=== PATIENT | female | born 1960 | race Caucasian/White ===

== ENCOUNTER 2023-01-13 10:04 | Outpatient (CLI) | payer MEDICAID, SELFPAY | END 2023-01-13 10:05 | disposition home or self-care (01) | LOC: INJ CL 10:05 | PROVIDERS: PCP Student in an Organized Health Care Education/Training Program; Visit Provider Family Medicine | DX: M54.16 Radiculopathy, lumbar region (principal); M51.36 Other intervertebral disc degeneration, lumbar region | CPT/HCPCS: 62323; J0702; Q9966 ==

== ENCOUNTER 2023-02-05 19:04 | Outpatient (CLI) | payer MEDICAID, SELFPAY | END 2023-02-05 19:05 | disposition home or self-care (01) | LOC: AMB 02-12 13:09 | PROVIDERS: PCP Student in an Organized Health Care Education/Training Program; Visit Provider Emergency Medicine | DX: R06.09 Other forms of dyspnea (principal); U07.1 COVID-19 | CPT/HCPCS: A0425; A0427 ==

== ENCOUNTER 2023-02-05 19:35 | Emergency (ER) | payer MEDICAID, SELFPAY ==
[2023-02-05 19:44] VITALS: BP 131/87; PULSE 73; RESP 16; TEMP 37.7; O2SAT 95
--- NOTE | 2023-02-05 20:10 | CRLHL7_ITS ---
For Patients: As a result of the Century Cures Act, medical imaging exams and procedure reports are released immediately into your electronic medical record. You may view this report before your referring provider. If you have questions, please contact your health care provider. INDICATION: COVID-19 TECHNIQUE: Chest radiograph 1 view COMPARISON: None FINDINGS: The sensitivity and specificity of the exam are moderately limited by the patient`s body habitus. Mediastinum: The mediastinum is normal in appearance. The heart silhouette is normal in size and morphology. Lung: Both lungs are unremarkable in appearance. No sign of pleural effusion seen. No pneumothorax is identified. Bone and Soft tissue: Unremarkable for age. IMPRESSION: 1. No acute cardiopulmonary disease is seen. Dictated by: Jose Falcon MD @ 02/05/2023 21:06:37 (Electronically Signed)
[2023-02-05 20:34] VITALS: BP 139/76; PULSE 88; RESP 18; TEMP 37.2; O2SAT 96
--- NOTE | 2023-02-05 20:36 | ED_ITS ---
HPI - General Adult General Date Seen: 02/05/23 Chief complaint: Cough Stated complaint: COVID Time Seen by Provider: 02/05/23 19:57 Source: patient Mode of arrival: EMS Limitations: no limitations History of Present Illness HPI narrative: Patient is a 62-year-old who started feeling poorly last night with fatigue, body aches, cough, headache, congestion. Today tested positive for COVID. Called the triage line was told to come in because of a history of COPD. She does not take any inhalers regularly, no hospitalizations. Quit smoking in 2014. Otherwise takes some medications for mental health, no other significant medical history. Wondering about Paxlovid. Related Data Home Medications Medication Instructions Recorded Confirmed bupropion HCl 100 mg tablet 100 mg PO DAILY 08/25/22 08/25/22 fluoxetine 40 mg capsule (Prozac) 40 mg PO DAILY 08/25/22 08/25/22 lamotrigine 100 mg tablet 300 mg PO DAILY 08/25/22 08/25/22 (Lamictal) Previous Rx's Medication Instructions Recorded gabapentin 300 mg capsule 300 mg PO TID #45 caps 08/25/22 nirmatrelvir 300 mg (150 mg See Rx Instructions PO .COMPLEX 02/05/23 x2)-ritonavir 100 mg tablet,dose #30 ea pack (Paxlovid) Allergies Allergy/AdvReac Type Severity Reaction Status Date / Time penicillin G Allergy Verified 01/13/23 10:29 Review of Systems Status of ROS: Reports: 6 or more systems reviewed and unremarkable except as noted in History and below [facility] PFS Social History Smoking Status: Former smoker Do you use any of these nicotine containing products: None How often do you have a drink containing alcohol: 2-4 times a month AUDIT-C Alcohol total score: 2 Non-prescribed substance use: denies use Exam Narrative: Exam Narrative: Vital signs as noted above. In general, an alert, well-appearing patient. Head: Normocephalic, atraumatic. Eyes: Pupils are equal reactive. Extraocular movements are full. Conjunctivae are normal. ENT: Mucous membranes are moist. Neck: Supple without lymphadenopathy. Heart: Regular rate and rhythm. No murmur or rub. Lungs: No wheezing, occasional rales, no increased work of breathing. Abdomen: Soft and nontender. No organomegaly. Extremities: Well perfused. No edema. No calf tenderness. Pulses intact. Neurologic: Patient is alert and oriented to person and place. Speech is fluent. Face is symmetric. Moves all extremities equally. Affect: Normal. Skin: Warm and dry. Well perfused. Const: Vital Signs, click to edit/add: Vital Signs - 24 hr 02/05/23 19:44 02/05/23 20:34 Temperature 99.8 F H 98.9 F Pulse Rate [Right Pulse Oximeter] 73 88 Respiratory Rate 16 18 Blood Pressure [Ri ght Upper Arm] 131/87 139/76 Pulse Oximetry 95 96 Oxygen Delivery Me thod Room Air Room Air Documenting provider has reviewed patient's vital signs: yes Course Course ED Course: I did a portable chest x-ray, by my review this is negative. Final radiology read is pending. She looks well, O2 sats are normal. With her history of COPD I did prescribe an inhaler and prednisone although right now I do not hear any evidence of bronchospasm. Reviewed her medications, she should be okay to take Paxlovid, discussed that this is not designed to improve symptoms but more to prevent serious complications. Anticipate gradual improvement over the next 10- 14 days. For worsening respiratory symptoms or other acute worsening, return to the emergency department, follow-up with primary care if not gradually improving over the next couple weeks. Vital Signs Vital signs: Initial Vital Signs Temperature 99.8 F H 02/05/23 19:44 Temperature Source Temporal Artery Scan 02/05/23 19:44 Pulse Rate 73 02/05/23 19:44 Pulse Rhythm Regular 02/05/23 19:44 Respiratory Rate 16 02/05/23 19:44 Blood Pressure 131/87 02/05/23 19:44 Blood Pressure Mean 101 02/05/23 19:44 Blood Pressure Position Sitting 02/05/23 19:44 Pulse Oximetry 95 02/05/23 19:44 Oxygen Delivery Method Room Air 02/05/23 19:44 Vital Signs Temperature 99.8 F H 02/05/23 19:44 Pulse Rate 73 02/05/23 19:44 Respiratory Rate 16 02/05/23 19:44 Blood Pressure 131/87 02/05/23 19:44 Pulse Oximetry 95 02/05/23 19:44 Oxygen Delivery Method Room Air 02/05/23 19:44 Temperature 98.9 F 02/05/23 20:34 Pulse Rate 88 02/05/23 20:34 Respiratory Rate 18 02/05/23 20:34 Blood Pressure 139/76 02/05/23 20:34 Pulse Oximetry 96 02/05/23 20:34 Oxygen Delivery Method Room Air 02/05/23 20:34 Discharge Plan Discharge Clinical Impression: COVID-19 Patient Disposition: Home, Self-Care Condition: Stable Instructions: COVID-19 (Coronavirus Disease 2019) (ED) Additional Instructions: Paxlovid as prescribed. Monitor for worsening depression symptoms, or other side effects. Albuterol if needed for wheezing or shortness of breath, prednisone as prescribed. Primary care follow-up if not gradually improving over the next 10-14 days. Return at any time to the ER for significant worsening respiratory status or other concerns. Prescriptions: New Paxlovid 300 mg (150 mg x 2)-100 mg tablets,dose pack See Rx Instructions .ROUTE .COMPLEX Qty: 30 0RF Rx Instructions: take TWO 150 mg tablets of nirmatrelvir with ONE 100 mg tablet of ritonavir twice daily for 5 days No Action fluoxetine [Prozac] 40 mg capsule 40 mg PO DAILY lamotrigine [Lamictal] 100 mg tablet 300 mg PO DAILY bupropion HCl 100 mg tablet 100 mg PO DAILY gabapentin 300 mg capsule 300 mg PO TID Qty: 45 0RF Follow Up/Referrals: Amanda Vuong PA-C [Primary Care Provider] - Stand Alone Forms: [employer] Info Instructions
== END 2023-02-05 20:36 | disposition home or self-care (01) ==
PROVIDERS: Emergency Provider Emergency Medicine; PCP Student in an Organized Health Care Education/Training Program
DX: U07.1 COVID-19 (principal)
CPT/HCPCS: 71045; 99283; 99284

== ENCOUNTER 2023-04-28 08:25 | Outpatient (CLI) | payer MEDICAID, SELFPAY | END 2023-04-28 08:26 | disposition home or self-care (01) | LOC: INJ CL 08:26 | PROVIDERS: PCP Student in an Organized Health Care Education/Training Program; Visit Provider Family Medicine | DX: M48.062 Spinal stenosis, lumbar region with neurogenic claudication (principal); M54.16 Radiculopathy, lumbar region | CPT/HCPCS: 64483; J1100; Q9966 ==

== ENCOUNTER 2023-05-07 08:25 | Outpatient (CLI) | payer MEDICAID, SELFPAY ==
--- NOTE | 2023-05-07 08:15 | CRLHL7_ITS ---
For Patients: As a result of the Century Cures Act, medical imaging exams and procedure reports are released immediately into your electronic medical record. You may view this report before your referring provider. If you have questions, please contact your health care provider. INDICATION: Neck pain. Loss of balance. COMPARISON: None available. TECHNIQUE: Sagittal T1, T2, and STIR sequences. Axial T2/gradient sequences. FINDINGS: Straightening of the normal cervical lordosis which may be secondary to patient position or muscle spasm. Otherwise, normal vertebral body facet alignment. No fractures. No vertebral body loss of height. No spondylolisthesis. No ligamentous injury. Normal marrow signal. No suspicious osseous lesions. Normal cord signal. No intradural mass or lesion. C1-2: No spinal canal narrowing. C2-3: No narrowing of spinal canal. Uncovertebral joint hypertrophy results in mild narrowing of the left neural foramen. No narrowing of the right neural foramen. C3-4: Disc degeneration with posterior disc bulge or disc osteophyte complex. Effacement of ventral thecal sac and mild narrowing of spinal canal. No neural foraminal narrowing. C4-5: Disc generation posted disc bulge or disc osteophyte complex. Mild narrowing of spinal canal. Moderate narrowing of the right neural foramen. No narrowing of the left neural foramen. C5-6: Disc degeneration and broad-based disc osteophyte complex. Effacement of the ventral thecal sac and flattening of ventral aspect cord. Moderate narrowing of spinal canal. Moderate right and mild left neural foraminal narrowing. C6-7: Disc degeneration posterior disc bulge. Mild narrowing of spinal canal. No neural foraminal narrowing. C7-T1: Disc degeneration. No spinal canal or neural foraminal narrowing. IMPRESSION: 1. Straightening of the normal cervical lordosis 2. Otherwise normal alignment. No fractures. 3. Normal cord signal. 4. Cervical spondylosis. 5. At C2-3, mild narrowing of spinal canal 6. At C4-5, mild narrowing of spinal canal. Moderate narrowing of the right neural foramina 7. At C5-6, moderate narrowing of the spinal canal and right neural foramen. Dictated by Michel Harding MD @ 05/08/2023 10:24:14 AM (Electronically Signed)
== END 2023-05-07 08:26 | disposition home or self-care (01) ==
LOC: MRI 08:25
PROVIDERS: PCP Student in an Organized Health Care Education/Training Program; Visit Provider Orthopaedic Surgery Orthopaedic Surgery of the Spine
DX: M54.2 Cervicalgia (principal); M47.892 Other spondylosis, cervical region; M48.02 Spinal stenosis, cervical region; R26.9 Unspecified abnormalities of gait and mobility
CPT/HCPCS: 72141

== ENCOUNTER 2023-07-24 10:45 | Outpatient (RCR) | payer MEDICAID, SELFPAY | END 2023-11-21 23:59 | disposition home or self-care (01) | PROVIDERS: PCP Student in an Organized Health Care Education/Training Program; Visit Provider Orthopaedic Surgery Orthopaedic Surgery of the Spine | DX: M48.062 Spinal stenosis, lumbar region with neurogenic claudication (principal); M48.02 Spinal stenosis, cervical region; Z51.89 Encounter for other specified aftercare | CPT/HCPCS: 97110; 97162 ==

== ENCOUNTER 2023-07-28 08:04 | Outpatient (CLI) | payer MEDICAID, SELFPAY | END 2023-07-28 08:05 | disposition home or self-care (01) | LOC: INJ CL 08:04 | PROVIDERS: PCP Student in an Organized Health Care Education/Training Program; Visit Provider Family Medicine | DX: M54.16 Radiculopathy, lumbar region (principal); M51.36 Other intervertebral disc degeneration, lumbar region | CPT/HCPCS: 64483; 64494; J1100; Q9966 ==

== ENCOUNTER 2023-09-04 07:54 | Outpatient (CLI) | payer MEDICAID, SELFPAY ==
--- OUTSIDE RECORDS SUMMARY | 2023-09-04 07:56 | XMS_ITS | Clinical Summary ---
Author Name Unknown Organization [facility] Address [place], [place] [address] Care Team Providers Care Professor Of Political Science Name Role Phone Amanda Vuong Primary Care Provider [phone] Allergies Active Allergy Reactions Criticality Noted Date Comments Penicillins *Unknown - Childhood Rxn 08/10/2005 Medications Medication Sig Dispensed Refills Start Date End Date Status Cholecalciferol, Vitamin D3, 1,250 mcg (50,000 unit) wafr Take 1,250 mcg by mouth once weekly. Active tiZANidine (ZANAFLEX) 4 mg tabletIndications: Lumbar radiculopathy TAKE ONE TABLET BY MOUTH EVERY EIGHT HOURS NEEDED FOR MUSCLE SPASM 24 Tablet 08/21/2023 Active clonazePAM (KLONOPIN) 0.5 mg tabletIndications: Bipolar I disorder (HC) Take 1-2 Tablets (0.5-1 mg) by mouth at bedtime. 40 Tablet 1 08/24/2023 Active QUEtiapine (SEROQUEL) 50 mg tabletIndications: Bipolar I disorder (HC) Take 1 Tablet (50 mg) by mouth at bedtime. 30 Tablet 2 09/01/2023 Active buPROPion (Wellbutrin XL) 150 mg Extended-Release tabletIndications: Bipolar I disorder (HC) Take 1 Tablet (150 mg) by mouth once daily. 30 Tablet 2 09/01/2023 Active buPROPion (WELLBUTRIN XL) 300 mg Extended-Release tabletIndications: Bipolar I disorder (HC) Take 1 Tablet (300 mg) by mouth once daily. 30 Tablet 1 09/01/2023 Active FLUoxetine (PROZAC) 20 mg capsuleIndications :Bipolar I disorder (HC) Take 1 Capsule (20 mg) by mouth every morning. 30 Capsule 1 09/01/2023 Active lamoTRIgine (LAMICTAL) 100 mg tabletIndications: Bipolar I disorder (HC) Take 3 Tablets (300 mg) by mouth once daily. 90 Tablet 1 09/01/2023 Active clonazePAM (KLONOPIN) 0.5 mg tabletIndications: Bipolar I disorder (HC) Take 1-2 Tablets (0.5-1 mg) by mouth at bedtime. 40 Tablet 1 06/15/2023 08/21/19 24 Discontinued(Reo rder (E-cancel not sent)) buPROPion (Wellbutrin XL) 150 mg Extended-Release tabletIndications: Bipolar I disorder (HC) Take 1 Tablet (150 mg) by mouth once daily. 30 Tablet 2 07/14/2023 09/01/19 24 Discontinued(Reo rder (E-cancel not sent)) buPROPion (WELLBUTRIN XL) 300 mg Extended-Release tabletIndications: Bipolar I disorder (HC) Take 1 Tablet (300 mg) by mouth once daily. 30 Tablet 1 07/14/2023 09/01/19 24 Discontinued(Reo rder (E-cancel not sent)) FLUoxetine (PROZAC) 20 mg capsuleIndications :Bipolar I disorder (HC) Take 1 Capsule (20 mg) by mouth every morning. 30 Capsule 1 07/14/2023 09/01/19 24 Discontinued(Reo rder (E-cancel not sent)) lamoTRIgine (LAMICTAL) 100 mg tabletIndications: Bipolar I disorder (HC) Take 3 Tablets (300 mg) by mouth once daily. 90 Tablet 1 07/14/2023 09/01/19 24 Discontinued(Reo rder (E-cancel not sent)) ARIPiprazole (Abilify) 2 mg tabletIndications: Bipolar 1 disorder (HC) Take 1 Tablet (2 mg) by mouth once daily. 30 Tablet 2 07/14/2023 09/01/19 24 Discontinued(*Me d complete/Regimen complete/Level of care change) tiZANidine (ZANAFLEX) 4 mg tabletIndications: Lumbar radiculopathy TAKE ONE TABLET BY MOUTH EVERY EIGHT HOURS NEEDED FOR MUSCLE SPASM 24 Tablet 07/27/2023 08/21/19 24 Discontinued Active Problems Problem Noted Date Diagnosed Date Borderline personality disorder 07/14/2023 Bipolar 2 disorder 06/15/2023 Bipolar I disorder 06/15/2023 PTSD (post-traumatic stress disorder) 06/15/2023 Ear pain, left 05/30/2021 Gastroesophageal reflux disease 05/16/2021 Diastolic blood pressure 90 mm Hg or higher 04/19 Centrilobular emphysema 05/16/2021 Overview: 05/16/2021 Prothrombin gene mutation 11/05/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 Osteoarthritis 05/06/2018 Rheumatoid arthritis 05/06/2018 High risk medication use 05/06/2018 Numbness on left side 11/30/2012 Left leg weakness 11/30/2012 Weight loss 11/30/2012 Hypokalemia 11/30/2012 Bipolar disorder 05/20/2011 DDD (degenerative disc disease), lumbar 05/20/19 12 Tobacco use disorder 05/20/2011 Hyperlipidemia 05/20/2011 ACP (advance care planning) 05/20/2011 Overview: Patient has identified Health Care Agent(s): No Add Health Care Agents: No Patient has Advance Care Plan Documents (Health Care Directive, POLST): No, Health Care Packet given to patient. Patient has identified Specific Treatment Preferences: No Specific limits to treatment preferences NOT identified: ASSUME FULL TREATMENT. Symptomatic menopausal or female climacteric sta spencer 09/25/2010 Resolved Problems Problem Noted Date Diagnosed Date Resolved Date High risk medication use 02/23/2018 UTI (lower urinary tract infection) 02/23/2012 11/30/2012 Dyspnea on exertion 05/20/2011 12/01/19 13 Chest pain 05/19/2011 11/30/2012 Encounters Date Type Department Care Team Description 09/01/2023 11:15 AM CDT Office Visit [facility] [address] [address] [place] [address] Essence Song NP Telehealth; Medication Management 09/01/2023 Travel 08/26/2023 1:00 PM CDT Office Visit [facility] [address] [place] [address] Dwayne Barbour MD Musculoskeletal Problem (Follow up back pain, had an CHUCKIE on 07/28/23) 08/26/2023 Travel 08/21/2023 Refill [facility] [address] [place] [address] Essence Song NP Refill Request (clonazePAM (KLONOPIN) 0.5 mg tablet) 08/20/2023 Refill [facility] [address] [place] [address] Dwayne Barbour MD Refill Request (Tizanidine) 08/19/2023 Travel 07/31/2023 Telephone [facility] [address] [place] [address] Denise Weston RN PHP/DT 07/28/2023 8:40 AM CDT Office Visit [facility] [address] [place] [address] Dwayne Barbour MD Procedure (Right L5-S1 and left L4-5 TFESI) 07/25/2023 Refill [facility] [address] [place] [address] Dwayne Barbour MD Refill Request (Tizanidine) 07/25/2023 Travel 07/16/2023 Telephone [facility] [address] [place] [address] Laverne Mckeon LGSW Scheduling 07/15/2023 Telephone [facility] [address] [place] [address] Ivan Marie LADC 07/15/2023 Telephone [facility] [address] [place] [address] Denise Weston RN [facility] [place] 07/14/2023 11:15 AM TRANSPORTATION LEAD Office Visit [facility] [address] [facility] [address] [place] [address] Essence Song NP Telehealth; Medication Management 07/14/2023 Telephone [facility] [address] [place] [address] Denise Weston RN [facility] 07/14/2023 Travel 07/13/2023 Medical Messaging [facility] [address] [place] [id number] Dwayne Barbour MD Injection 06/17/2023 2:45 PM TRANSPORTATION LEAD Orders Only [facility] [address] [place] [id number] [facility] [place] Outside Order (Marian Parra) 06/17/2023 Travel 06/15/2023 10:45 AM TRANSPORTATION LEAD Office Visit [facility] [address] [facility] [address] [place] [id number] Essence Song NP Medication Management; Follow Up 06/15/2023 Travel 06/15/2023 Orders Only [facility] [address] [place] [address] Amanda Vuong PA Outside Order (Ordered by Marian Parra) 06/12/2023 Travel 06/08/2023 9:00 AM TRANSPORTATION LEAD Office Visit [facility] [address] [place] [address] Dwayne Barbour MD Musculoskeletal Problem (Spine injection follow up/Still having pain) 06/08/2023 Travel 06/05/2023 Refill [facility] [address] [place] [address] Amanda Vuong PA Refill Request (Fluoxetine) from Last 3 Months Immunizations Name Administration Dates Next Due COVID-19 Vaccine Spikevax (M oderna 50mcg/0.5mL) 12YO+ [id number] Formula PF 03/03/2023 COVID-19 vaccine (Secure-24 30mcg/0.3mL) P F, MDV 12/07/2020,11/09/2020 Influenza, IIV3 (Age >=3 years) 03/21/2012,03/18 Influenza, IIV4 03/03/2023,05/30/2021 Tdap 12/08/2017 Family History Medical History Relation Name Comments Psychiatric illness Brother Cancer Father bladder/melanom a Cancer-colon Father age late 60's Heart Disease Father quad bypass Arthritis Mother Cancer Mother lung Hyperlipidemia Mother Hypertension Mother Psychiatric illness Sister 1 Diabetes Sister 2 Alzheimer's disease Son 1 Blake Factor V Leiden deficiency Son 1 Blake Alcoholism Son 3 Fredy Cancer-breast No Family History Relation Name Status Comments Brother Father Alive Mother Sister 1 Sister 2 Son 1 Blake Alive Son 2 Sammy Alive Son 3 Fredy Alive Social History Tobacco Use Types Packs/Day Years Used Date Smoking Tobacco: Former Cigarettes 1 38.5 0 05/18/1974 - 11/29/2012 Smokeless Tobacco: Never Tobacco Cessation:Counseling Given: Yes Comments:quit september 2014 Alcohol Use Standard Drinks/Week Comments Yes 0 (1 standard drink = 0.6 oz pur e alcohol) 1-2 times a week PHQ-2 Answer Date Recorded PHQ-2 TOTAL SCORE 6 07/14/2023 Social Connections Answer Date Recorded Frequency of Communication with Friends and Fami ly 0 01/06/2023 Financial Resource Strain Answer Date R ecorded Difficulty of Paying Living Expenses 3 01/06/2023 Difficulty of Paying Living Expenses Not on file 01/06/2023 Food Insecurity Answer Date Recorded Worried About Running Out of Food in the Last Ye ar 1 01/06/2023 Transportation Needs Answer Date Record ed Lack of Transportation (Medical) 1 01/06/2023 Housing Stability Answer Date Recorded Unable to Pay for Housing in the Last Year 1 01/06/2023 Sex and Gender Information Value Date Recorded Sex Assigned at Not on file Gender Identity Not on file Sexual Orientation Not on file Obstetrics History Para Term AB IAB SAB Ectopic Multiple Livin g Live Births 3 3 3 0 0 0 0 0 3 Date Outcome GA Total Labor Labor/2nd/3rd Weight Sex Delivery Anes PTL Soraida A1 A5 Name Cl in Term Term Term Last Filed Vital Signs Vital Sign Reading Time Taken Comments Blood Pressure 135/87 09/01/2023 11:04 AM CDT Pulse 72 09/01/2023 11:04 AM CDT Temperature 36.6 ??C (97.9 ??F) 08/26/2023 1:06 PM CD T Respiratory Rate 20 07/14/2023 11:15 AM TRANSPORTATION LEAD Oxygen Saturation 96% 08/26/2023 1:06 PM CDT Inhaled Oxygen Concentration - - Weight 88.5 kg (195 lb) 03/03/2023 10:24 AM CDT Height 160 cm (5' 3) 07/14/2023 11:15 AM TRANSPORTATION LEAD Body Mass Index 34.54 09/16/2021 2:17 PM CDT Plan of Treatment Upcoming Encounters Date Type Department Care Team (Late st Contact Info) Description 09/04/2023 8:20 AM CDT Office Visit [facility] [address] [place] [address] Dwayne Barbour MD [address] [place] [address] 09/09/2023 12:45 PM CDT Office Visit [facility] [address] [place] [address] Amanda Vuong PA [address] [place] [address] 10/07/2023 10:15 AM CDT Office Visit [facility] [address] [place] [address] Ирина Roy MD [address] [place] [address] 12/02/2023 10:00 AM CDT Office Visit [facility] [address] [place] [address] Dwayne Barbour MD [address] [place] [address] Health Maintenance Due Date Last Done Comments Pneumococcal series for age 6-64 (1 of 2 - PCV) 12/15/1967 Mammogram for age 45-75 10/11/2011 10/11/19 11, 10/10/2010, 06/03/2007 Zoster (shingles) series for age 50+ (1 of 2) 12/15/[address] (for lung CA) ag e 50-80 05/16/2022 05/16/2021, 01/25/2019, 12/01/2012, Additional history exists BMI (ht and wt on same day) for age 18+ 09/16/2022 09/16/2021, 05/16/2021, 01/20/2018, Additional history exists Influenza for age 50-64 01/17/2024 03/03/20, 05/30/2021, 03/21/2012, Additional history exists Depression screening for age 12+ 07/15/2024 07/16/2023, 07/15/2023, 07/15/2023, Additional history exists Colonoscopy through age 75 02/26/2025 02/26/2015 Tetanus booster 12/09/2027 12/08/2017 Lipids for age 45-75 05/13/2028 05/13/2023, 02/14/2016, 11/30/2012, Additional history exists Tdap Completed 12/08/2017 HIV for age 15-65 Completed 07/05/2020 Hepatitis C screening for ag e 18-79 Completed 07/05/2020, 12/08/2017 COVID-19 vaccine series Completed 03/03/20, 07/19/2021, 12/07/2020, Additional history exists Procedures Procedure Name Priority Date/Time Associated Diagnosis Comments AMB EPIDURAL STEROID INJECTION Routine 07/28/2023 12:00 AM CDT Lumbosacral radiculopathy at L4 DDD (degenerative disc disease), lumbar Lumbar facet arthropathy METHYLMALONIC ACID BLOOD Routine 06/17/2023 2:53 PM TRANSPORTATION LEAD Paroxysmal nerve pain Fatigue Avitaminosis D VITAMIN B12 Routine 06/17/2023 2:53 PM TRANSPORTATION LEAD Paroxysmal nerve pain Fatigue Avitaminosis D VITAMIN D 25 (DEFICIENCY) Routine 06/17/2023 2:53 PM TRANSPORTATION LEAD Paroxysmal nerve pain Fatigue Avitaminosis D LIPID PANEL Routine 05/13/2023 12:22 PM TRANSPORTATION LEAD Medication monitoring encounter CT CHEST PE STUDY PAT 05/16/2021 12: 52 PM TRANSPORTATION LEAD Prothrombin gene mutation (HC) R[place] (dyspnea on exertion) ANTI HIV 1/2 Routine 07/05/2020 9:41 AM TRANSPORTATION LEAD Rheumatoid arthritis, involving unspecified site, unspecified whether rheumatoid factor present (HC) ANTI HCV Routine 07/05/2020 9:41 AM TRANSPORTATION LEAD Rheumatoid arthritis, involving unspecified site, unspecified whether rheumatoid factor present (HC) COLONOSCOPY 02/26/2015 2:21 PM CDT XR MAMMO SCREENING BILATERAL (IA) Routine 10/10/2010 9:44 AM CDT Other screening mammogram from Last 3 Months or Most Recently Relevant to Health Maintenance Results * AMB EPIDURAL STEROID INJECTION (07/28/2023 12:00 AM CDT) Dwayne Barbour MD NEUROLOGY ORD * METHYLMALONIC ACID BLOOD (06/17/2023 2:53 PM TRANSPORTATION LEAD) Methylmalonic Acid 144 0 - 378 nmol/L 06/26/2023 10:06 PM [facility] ([facility]) Blood BLOOD SPECIMEN / Unknown Venipuncture / Unknown 06/17/2023 2:53 PM TRANSPORTATION LEAD 06/17/2023 2:53 PM TRANSPORTATION LEAD Narrative [facility] ([facility]) - 06/26/2023 10:[address] [facility] Test(s) 097727-[id number] Acid, Serum was developed and its performance characteristics determined by [facility]. It has not been cleared or approved by the Food and Drug Administration. Performed at: ??[address] ??[id number] [employer] Executive Director: Ismael Musa MD, Phone: ??[phone] Amanda LEBLANC SEND OUTS [facility] ([facility]) [address] [place] [address], * (ABNORMAL) VITAMIN D 25 (DEFICIENCY) (06/17/2023 2:53 PM TRANSPORTATION LEAD) VITAMIN D TOTAL 13.4(L) 20.0 - 80.0 ng/mL 06/18/2023 10:00 AM TRANSPORTATION LEAD [facility] Blood BLOOD SPECIMEN / Unknown Venipuncture / Unknown 06/17/2023 2:53 PM TRANSPORTATION LEAD 06/17/2023 2:53 PM TRANSPORTATION LEAD Narrative [facility] - 06/18/2023 10:00 AM TRANSPORTATION LEAD ? Vitamin D Status Deficiency: ? <20 ng/mL Insufficiency: ?20-29 ng/mL Sufficiency: ?30-80 ng/mL Possible Toxicity: ??>80 ng/mL Based on [place] of Medicine recommendations Biotin supplements may cause clinically significant interference for this test assay. ??If interference is suspected, it is strongly recommended that biotin is discontinued for at least one week prior to retesting. Amanda LEBLANC SEND OUTS Performing Organization Address City/[facility]/ZIP Co de Phone Number [facility] [address] [place] [address], * VITAMIN B12 (06/17/2023 2:53 PM TRANSPORTATION LEAD) VITAMIN B12 634 232 - 1,245 pg/mL 06/18/2023 10:00 AM TRANSPORTATION LEAD [facility] Blood BLOOD SPECIMEN / Unknown Venipuncture / Unknown 06/17/2023 2:53 PM TRANSPORTATION LEAD 06/17/2023 2:53 PM TRANSPORTATION LEAD Narrative [facility] - 06/18/2023 10:00 AM TRANSPORTATION LEAD Biotin supplements may cause clinically significant interference for this test assay. ??If interference is suspected, it is strongly recommended that biotin is discontinued for at least one week prior to retesting. Amanda LEBLANC CHEMISTRY [facility] [address] [place] [address], * (ABNORMAL) LIPID PANEL (05/13/2023 12:22 PM TRANSPORTATION LEAD) [facility] CHOLESTEROL,TOTAL 235(H) 100 - 199 mg/dL 05/13/2023 12:[address] [facility] Comment: Cholesterol, Total Reference Ranges Desirable <200 mg/dL Borderline 200-239 mg/dL High >=240 mg/dL TRIGLYCERIDES 279(H) <150 mg/dL 05/13/2023 12:[address] [facility] HDL CHOLESTEROL 49 >40 mg/dL 12:[address] [facility] NON-HDL CHOLESTEROL 186(H) <145 mg/dl 05/13/2023 12:[address] [facility] CHOL/HDL RATIO 4.80(H) <4.50 05/13/2023 12:[address] [facility] LDL CHOLESTEROL 130 <=130 mg/dL 05/13/2023 12:[address] [facility] VLDL CHOLESTEROL 56(H) <=30 mg/dL 05/13/2023 12:[address] [facility] PROVIDER ORDERED STATUS RANDOM 05/13/2023 12:[address] [facility] Blood BLOOD SPECIMEN / Unknown Venipuncture / Unknown 05/13/2023 12:22 PM TRANSPORTATION LEAD 05/13/2023 12:23 PM TRANSPORTATION LEAD Essence Song NP CHEMISTRY [facility] [address] [place] [address] * CT CHEST PE STUDY (05/16/2021 12:52 PM TRANSPORTATION LEAD) Anatomical Region Laterality Modality CHEST, THORAX, HEART Other 05/16/2021 12:5 2 PM TRANSPORTATION LEAD Impressions 05/16/2021 1:10 PM TRANSPORTATION LEAD IMPRESSION: 1. ??Negative for pulmonary embolism. 2. ??Emphysema. Narrative 05/16/2021 1:10 PM TRANSPORTATION LEAD EXAM: CT CHEST PULMONARY EMBOLISM w CONTRAST LOCATION: [facility] DATE/TIME: 05/16/2021 12:52 PM INDICATION: Prothrombin gene mutation (HC), Dyspnea. COMPARISON: CT chest abdomen pelvis 01/25/2020 TECHNIQUE: CT chest pulmonary angiogram during arterial phase injection of IV contrast. Multiplanar reformats and MIP reconstructions were performed. Dose reduction techniques were used. CONTRAST: 80 cc Omn[employer] 350 FINDINGS: ANGIOGRAM CHEST: Pulmonary arteries are normal caliber and negative for pulmonary emboli. Thoracic aorta is negative for dissection. No CT evidence of right heart strain. LUNGS AND PLEURA: Moderate centrilobular predominant emphysema. No acute airspace opacities. Stable 3 mm right upper lobe nodule (series 5 image 125), most likely benign given multiyear stability. No pleural effusion or pneumothorax. MEDIASTINUM/AXILLAE: Normal heart size. No pericardial effusion. Normal caliber thoracic aorta. No thoracic lymphadenopathy. CORONARY ARTERY CALCIFICATION: Mild. UPPER ABDOMEN: Hepatic cysts. MUSCULOSKELETAL: No significant osseous abnormality. Procedure Note Fredy Sun MD - 05/16/2021 EXAM: CT CHEST PULMONARY EMBOLISM w CONTRAST LOCATION: [facility] DATE/TIME: 05/16/2021 12:52 PM INDICATION: Prothrombin gene mutation (HC), Dyspnea. COMPARISON: CT chest abdomen pelvis 01/25/2020 TECHNIQUE: CT chest pulmonary angiogram during arterial phase injection of IV contrast. Multiplanar reformats and MIP reconstructions were performed. Dose reduction techniques were used. CONTRAST: 80 cc Omnipaque 350 FINDINGS: ANGIOGRAM CHEST: Pulmonary arteries are normal caliber and negative for pulmonary emboli. Thoracic aorta is negative for dissection. No CT evidence of right heart strain. LUNGS AND PLEURA: Moderate centrilobular predominant emphysema. No acute airspace opacities. Stable 3 mm right upper lobe nodule (series 5 image 125), most likely benign given multiyear stability. No pleural effusion or pneumothorax. MEDIASTINUM/AXILLAE: Normal heart size. No pericardial effusion. Normal caliber thoracic aorta. No thoracic lymphadenopathy. CORONARY ARTERY CALCIFICATION: Mild. UPPER ABDOMEN: Hepatic cysts. MUSCULOSKELETAL: No significant osseous abnormality. IMPRESSION: IMPRESSION: 1. Negative for pulmonary embolism. 2. Emphysema. Bryon Neves DO CT * ANTI HCV (07/05/2020 9:41 AM TRANSPORTATION LEAD) Pathologist [facility] HEPATITIS C ANTIBODY Non-React lucas Non-React lucas 07/05/2020 3:17 PM TRANSPORTATION LEAD [facility] Comment:Antibodies to HCV no t detected; does not exclude the possibility of exposure to HCV. Blood BLOOD SPECIMEN / Unknown Venipuncture / Unknown 07/05/2020 9:41 AM TRANSPORTATION LEAD 07/05/2020 10:11 AM TRANSPORTATION LEAD Pam Hernandez MBBS SEND OUTS [facility] [address] [place] [address], [place] * ANTI HIV 1/2 (07/05/2020 9:41 AM TRANSPORTATION LEAD) Pathologist [facility] HIV-1/HIV-2 ANTIBODY Non-Reacti ve Non-Reacti ve 07/05/2020 3:26 PM TRANSPORTATION LEAD [facility] Comment:HIV-1 p24 and HIV-1/ HIV-2 Ab not detected. Blood BLOOD SPECIMEN / Unknown Venipuncture / Unknown 07/05/2020 9:41 AM TRANSPORTATION LEAD 07/05/2020 10:11 AM TRANSPORTATION LEAD Pam Hernandez MBBS SEND OUTS [facility] [address] [place] [address], [place] * COLONOSCOPY (02/26/2015 2:21 PM CDT) 02/26/2015 2:21 PM CDT Narrative 02/26/2015 2:21 PM CDT [facility] Patient Name: Paige Maynard ?Procedure Date: 02/26/2015 ? Gender: Female ? Date of : 1960 Admit Type: Ambulatory ? Procedure: ?Colonoscopy Proceduralist: ?Jose F Elaine MD Indications/Pre-Op Diagnosis: Screening for colorectal malignant neoplasm Medications: ?Fentanyl 150 micrograms IV, Midazolam 3 mg IV, ?The level of sedation administered was moderate ? Procedure Description: ? The patient had risks, benefits and alternatives explained to and gave ? informed consent. The patient had a stable cardiopulmonary status and ? judged an adequate candidate for conscious sedation. ? The pediatric colonoscope was passed through the anus and advanced to ? the cecum, identified by appendiceal orifice and ileocecal valve. The ? colonoscopy was performed without difficulty. The patient tolerated the ? procedure well. The quality of the bowel preparation was good. The ? ileocecal valve and the appendiceal orifice were photographed. ? Scope Withdrawal Time 0 hours 10 minutes 49 seconds Complications: ?No immediate complications. Estimated Blood Loss & Specimen: ? Estimated blood loss: none. ? Specimen collected: None ? Findings: ? The perianal and digital rectal examinations were normal. ? The colon (entire examined portion) appeared normal. ? Impressions/Post-Op Diagnosis: ? - The entire examined colon is normal. ? - No specimens collected. ? Recommendation: ? - Repeat colonoscopy in 10 years for surveillance. ? Jose F Elaine MD 02/26/2015 3:01:18 PM This report has been signed electronically. Note Initiated On: 02/26/2015 2:21 PM Procedure Note Jose F Elaine MD - 02/26/2015 3:01 PM CDT Procedural Care Center Patient Name: Paige Maynard Procedure Date: 02/26/2015 Gender: Female Date of : 1960 Admit Type: Ambulatory Procedure: Colonoscopy Proceduralist: Jose F Elaine MD Indications/Pre-Op Diagnosis: Screening for colorectal malignantneoplasm Medications: Fentanyl 150 micrograms IV, Midazolam 3 mgIV, The level of sedation administered wasmoderate Procedure Description: The patient had risks, benefits and alternatives explained to andgave informed consent. The patient had a stable cardiopulmonary status and judged an adequate candidate for conscious sedation. The pediatric colonoscope was passed through the anus and advanced to the cecum, identified by appendiceal orifice and ileocecal valve. The colonoscopy was performed without difficulty. The patient toleratedthe procedure well. The quality of the bowel preparation was good. The ileocecal valve and the appendiceal orifice were photographed. Scope Withdrawal Time 0 hours 10 minutes 49 seconds Complications: No immediate complications. Estimated Blood Loss & Specimen: Estimated blood loss: none. Specimen collected: None Findings: The perianal and digital rectal examinations were normal. The colon (entire examined portion) appeared normal. Impressions/Post-Op Diagnosis: - The entire examined colon is normal. - No specimens collected. Recommendation: - Repeat colonoscopy in 10 years for surveillance. Jose F Elaine MD 02/26/2015 3:01:18 PM This report has been signed electronically. Note Initiated On: 02/26/2015 2:21 PM Jose F Elaine MD PROCEDURE ORD * XR MAMMO SCREENING BILATERAL * (10/10/2010 9:44 AM CDT) Anatomical Region Laterality Modality BREASTS, Breast Left, Breast Right Bilateral Mammography Impressions 10/15/2010 5:21 PM CDT ??There is no radiographic evidence for malignancy. ??Recommend annual mammograms. A lay language report of this examination will be provided to the patient. MAMMOGRAM ASSESSMENT: ??ACR 1 Negative Narrative 10/15/2010 5:21 PM CDT XR MAMMO SCREENING BILATERAL [82525.0] CLINICAL HISTORY: ??This is an asymptomatic 49 y.o. patient. INDICATION FOR EXAM: Mammogram Screening. TECHNIQUE: CC & MLO views were obtained. ??This analog study was evaluated with the assistance of Computer-Aided Detection. ?? COMPARISON FILM: Yes 06/03/07 [facility] 02/21/04 [facility] FINDINGS: ??Mammographically, the breast tissue has scattered fibroglandular densities (approximately 25% - 50% glandular). ??There are no dominant masses, suspicious micro calcifications or areas of architectural distortion. Procedure Note Sarah Florence MD - 10/15/2010 XR MAMMO SCREENING BILATERAL [76532.0] CLINICAL HISTORY: This is an asymptomatic 49 y.o. patient. INDICATION FOR EXAM: Mammogram Screening. TECHNIQUE: CC & MLO views were obtained. This analog study was evaluatedwith the assistance of Computer-Aided Detection. COMPARISON FILM: Yes 06/03/07 [facility] 02/21/04 [facility] FINDINGS: Mammographically, the breast tissue has scatteredfibroglandular densities (approximately 25% - 50% glandular). There areno dominant masses, suspicious micro calcifications or areas ofarchitectural distortion. IMPRESSION: There is no radiographic evidence for malignancy. Recommendannual mammograms. A lay language report of this examination will be provided to the patient. MAMMOGRAM ASSESSMENT: ACR 1 Negative Maggi Cornejo MD MAMMO from Last 3 Months or Most Recently Relevant to Health Maintenance Advance Directives * Full Code (Latest Code Status on File) Date Activated Date Inactivated Comments 02/26/2015 8:07 AM 02/26/2015 6:28 PM * Full Code Date Activated Date Inactivated Comments 11/30/2012 2:33 AM 12/02/2012 5:28 PM * Full Code Date Activated Date Inactivated Comments 05/20/2011 12:29 AM 05/20/2011 4:58 PM Care Teams Professor Of Political Science Relationship Specialty Start Date End Date Amanda Vuong PA [address] [place] [address] PCP - General Physician Operation Agent 09/01/22
== END 2023-09-04 07:55 | disposition home or self-care (01) ==
LOC: INJ CL 07:54
PROVIDERS: PCP Student in an Organized Health Care Education/Training Program; Visit Provider Family Medicine
DX: M53.3 Sacrococcygeal disorders, not elsewhere classified (principal); M47.816 Spondylosis without myelopathy or radiculopathy, lumbar region
CPT/HCPCS: 27096; 64493; 64494; J0702; Q9966

== ENCOUNTER 2024-02-02 09:30 | Outpatient (CLI) | payer MEDICAID, SELFPAY ==
--- OUTSIDE RECORDS SUMMARY | 2024-02-02 09:32 | XMS_ITS | Clinical Summary ---
Author Organization [facility] Address [place], [place] [address] Care Team Providers Care Sole Blacker Name Role Phone Amanda Vuong Primary Care Provider [phone] Allergies Active Allergy Reactions Criticality Noted Date Comments Penicillins *Unknown - Childhood Rxn 08/10/2005 Medications Medication Sig Dispensed Refills Start Date End Date Status cholecalciferol, Vitamin D3, (Vitamin D-3) 5,000 unit tab tablet Take 5,000 units by mouth once daily. Active tiZANidine (ZANAFLEX) 4 mg tabletIndications:L umbar radiculopathy TAKE ONE TABLET BY MOUTH EVERY EIGHT HOURS NEEDED FOR MUSCLE SPASM 24 Tablet 2 11/16/2023 Active buPROPion (WELLBUTRIN XL) 300 mg Extended-Release tabletIndications:B ipolar I disorder (HC) Take 1 Tablet (300 mg) by mouth once daily. 90 Tablet 1 01/22/2024 Active divalproex (Depakote ER) 250 mg Extended-Release tabletIndications:B ipolar I disorder (HC) Take 1 Tablet (250 mg) by mouth at bedtime. 90 Tablet 1 01/22/2024 Active lamoTRIgine 100 mg tabletIndications:B ipolar I disorder (HC) Take 3 Tablets (300 mg) by mouth once daily. 90 Tablet 1 01/22/2024 Active clonazePAM (KLONOPIN) 0.5 mg tabletIndications:B ipolar I disorder (HC) Take 1-2 Tablets (0.5-1 mg) by mouth at bedtime. #45 tablets to last 30 days. 45 Tablet 2 01/22/2024 Active lamoTRIgine (LAMICTAL) 100 mg tabletIndications:B ipolar I disorder (HC) Take 3 Tablets (300 mg) by mouth once daily. 90 Tablet 1 09/01/2023 01/22/2024 Discontinued (Reorder (E-cancel not sent)) Pyridoxine HCl 500 mg tabletIndications:A kathisia Take 1 Tablet (500 mg) by mouth two times daily. 60 Tablet 2 11/11/2023 01/04/2024 Discontinued (*Med complete/Reg imen complete/Lev el of care change) buPROPion (WELLBUTRIN XL) 300 mg Extended-Release tabletIndications:B ipolar I disorder (HC) Take 1 Tablet (300 mg) by mouth once daily. 30 Tablet 2 11/11/2023 01/22/2024 Discontinued (Reorder (E-cancel not sent)) lurasidone (LATUDA) 20 mg tabletIndications:B ipolar I disorder (HC) Take 1 Tablet (20 mg) by mouth with dinner. 90 Tablet 11/17/2023 01/04/2024 Discontinued (*Allergic/A dverse Rxn/Side Effects) clonazePAM (KLONOPIN) 0.5 mg tabletIndications:B ipolar I disorder (HC) Take 1-2 Tablets (0.5-1 mg) by mouth at bedtime. 40 Tablet 1 2023 01/22/2024 Discontinued (*Medication adjustment) divalproex (Depakote ER) 250 mg Extended-Release tabletIndications:B ipolar I disorder (HC) Take 1 Tablet (250 mg) by mouth at bedtime. 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 Osteoarthritis 05/06/2018 Rheumatoid arthritis 05/06/2018 High risk medication use 05/06/2018 Numbness on left side 11/30/2012 Left leg weakness 11/30/2012 Weight loss 11/30/2012 Hypokalemia 11/30/2012 Bipolar disorder 05/20/2011 DDD (degenerative disc disease), lumbar 05/20/19 Tobacco use disorder 05/20/2011 Hyperlipidemia 05/20/2011 ACP (advance care planning) 05/20/2011 Overview (05/20/2011): Patient has identified Health Care Agent(s): No [...] Encounters Date Type Department Care Team Description 01/30/2024 Travel 01/22/2024 8:15 AM CDT Telemedicine [facility] [address] [facility] [address] Ирина Roy MD Telehealth; Medication Management (Things are going okay) 01/21/2024 Travel 01/07/2024 3:15 PM CDT Orders Only [facility] [address] [facility] [address] [place] Outside Order (Fidel) 01/07/2024 2:20 PM CDT Office Visit [facility] [address] [facility] [address] Dwayne Barbour MD Musculoskeletal Problem (Follow up back pain) 01/07/2024 Travel 01/04/2024 9:45 AM CDT Office Visit [facility] [address] [place] [address] Ирина Roy MD Follow Up; Medication Management (feeling, I'm feeling OK today) 01/03/2024 Travel 12/29/2023 Orders Only [facility] [address] [place] [address] Amanda Vuong PA Outside Order (Ordered by Marian Parra) 12/13/2023 Refill [facility] [place] [address] [facility] [address] [place] [address] Ирина Roy MD Refill Request (Clonazepam) 11/15/2023 Refill [facility] [address] [place] [address] Dwayne Barbour MD Refill Request (Tizanidine) 11/11/2023 9:45 AM CDT Office Visit [facility] [address] [place] [address] Ирина Roy MD Follow Up; Medication Management (feeling, nayely agitated, I have no reason to be agitated. I woke up that way) 11/11/2023 Travel from Last 3 Months Immunizations Name Administration Dates Next Due COVID-19 VACCINE SPIKEVAX (M ODERNA 50MCG/0.5ML) 12YO+ PFS 03/03/2023 COVID-19 vaccine (Pfizer-BioNTech 30mcg/0.3mL) P F, V 12/07/2020,11/09/2020 Influenza, IIV3 (Age >=3 years) 03/21/2012,03/18 [...] PHQ-2 Answer Date Recorded PHQ-2 TOTAL SCORE 4 01/21/2024 Social Connections Answer Date Recorded Frequency of Communication with Friends and Fami ly 4 10/22/2023 Financial Resource Strain Answer Date R ecorded [...] Outcome GA Total Labor Labor/2nd/3rd Weight Sex Type Anes PTL Soraida A1 A5 Name Clin Term Term Term Last Filed Vital Signs Vital Sign Reading Time Taken Comments Blood Pressure 123/91 01/07/2024 2:33 PM CDT Pulse 102 01/07/2024 2:33 PM CDT Temperature 37.1 ??C (98.7 ??F) 01/07/2024 2:33 PM CD T Respiratory Rate 16 10/23/2023 9:00 AM CDT Oxygen Saturation 95% 01/07/2024 2:33 PM CDT Inhaled Oxygen Concentration - - Weight 88.5 kg (195 lb) 03/03/2023 10:24 AM CDT Height 160 cm (5' 3) 07/14/2023 11:15 AM RESTAURANT SERVICE MANAGER Body Mass Index 34.54 09/16/2021 2:17 PM CDT Plan of Treatment Upcoming Encounters Date Type Department Care Team (Late st Contact Info) Description 02/02/2024 10:00 AM CDT Office Visit [facility] [address] [place] [address] Dwayne Barbour MD [address] [place] [address] Arrived 02/10/2024 11:10 AM CDT Office Visit [facility] [address] [place] [address] Amanda Vuong PA [address] [place] [address] 03/09/2024 10:40 AM CDT Office Visit [facility] [address] [place] [address] Dwayne Barbour MD [address] [place] [address] 03/15/2024 10:00 AM CDT Telemedicine [facility] [address] [place] [address] Shiv Han, PhD, [address] [address] 03/29/2024 11:00 AM RESTAURANT SERVICE MANAGER Telemedicine [facility] [address] [place] [address] Shiv Han, PhD, [address] [address] 04/20/2024 8:15 AM RESTAURANT SERVICE MANAGER Office Visit [facility] [address] [place] [address] Ирина Roy MD [address] [place] [address] Health Maintenance Due Date Last Done Comments [...] history exists Depression screening for age 12+ 01/21/2025 01/22/2024, 01/21/2024, 01/07/2024, Additional history exists Colonoscopy through age 75 02/26/2025 02/26/2015 Tetanus booster 12/09/2027 12/08/2017 Lipids for age 45-75 10/22/2028 10/23/2023, 05/13/2023, 02/14/2016, Additional history exists Tdap Completed 12/08/2017 HIV for age 15-65 Completed 07/05/2020 Hepatitis C screening for ag e 18-79 Completed 07/05/2020, 12/08/2017 COVID-19 vaccine series Completed 03/03/20, 07/19/2021, 12/07/2020, Additional history exists Procedures Procedure Name Priority Date/Time Associated Diagnosis Comments AMB EPIDURAL STEROID INJECTION Routine 02/02/2024 8:02 AM CDT Lumbar radiculopathy DDD (degenerative disc disease), cervical Lumbosacral radiculopathy at L4 VITAMIN D 25 (DEFICIENCY) Routine 01/07/2024 3:29 PM CDT Avitaminosis D LIPID PANEL Early AM 10/23/2023 8:[address] CHEST PE STUDY PAT 05/16/2021 12: 52 PM RESTAURANT SERVICE MANAGER Prothrombin gene mutation (HC) RICHARDSON (dyspnea on exertion) ANTI HIV 1/2 Routine 07/05/2020 9:41 AM RESTAURANT SERVICE MANAGER Rheumatoid arthritis, involving unspecified site, unspecified whether rheumatoid factor present (HC) ANTI HCV Routine 07/05/2020 9:41 AM RESTAURANT SERVICE MANAGER Rheumatoid arthritis, involving unspecified site, unspecified whether rheumatoid factor present (HC) COLONOSCOPY 02/26/2015 2:21 PM CDT XR MAMMO SCREENING BILATERAL (IA) Routine 10/10/2010 9:44 AM CDT Other screening mammogram from Last 3 Months or Most Recently Relevant to Health Maintenance Results * VITAMIN D 25 (DEFICIENCY) (01/07/2024 3:29 PM CDT) VITAMIN D TOTAL 66.5 20.0 - 80.0 ng/mL 01/08/2024 3:20 AM CDT [facility] Blood BLOOD SPECIMEN / Unknown Venipuncture / Unknown 01/07/2024 3:29 PM CDT 01/07/2024 3:34 PM CDT Narrative [facility] - 01/08/2024 3:20 AM CDT ? Vitamin D Status Deficiency: ? <20 ng/mL Insufficiency: ?20-29 ng/mL Sufficiency: ?30-80 ng/mL Possible Toxicity: ??>80 ng/mL Based on [employer] [facility] recommendations Biotin supplements may cause clinically significant interference for this test assay. ??If interference is suspected, it is strongly recommended that biotin is discontinued for at least one week prior to retesting. Amanda LEBLANC SEND OUT[facility] [address] [address], * (ABNORMAL) Lipid Panel (10/23/2023 8:35 AM CDT) CHOLESTEROL,TOTAL 226(H) 100 - 199 mg/dL 10/23/2023 10:03 AM CDT [facility] Comment: Cholesterol, Total Reference Ranges Desirable <200 mg/dL Borderline 200-239 mg/dL High >=240 mg/dL TRIGLYCERIDES 224(H) <150 mg/dL 10/23/2023 10:03 AM CDT [facility] HDL CHOLESTEROL 49 >40 mg/dL 10:03 AM CDT [facility] NON-HDL CHOLESTEROL 177(H) <145 mg/dl 10/23/2023 10:03 AM CDT [facility] CHOL/HDL RATIO 4.61(H) <4.50 10/23/2023 10:03 AM CDT [facility] LDL CHOLESTEROL 132(H) <=130 mg/dL 10/23/2023 10:03 AM T [facility] VLDL CHOLESTEROL 45(H) <=30 mg/dL 10/23/2023 10:03 AM CDT [facility] PROVIDER ORDERED STATUS RANDOM 10/23/2023 10:03 AM T [facility] Blood BLOOD SPECIMEN / Unknown Non-Lab Venipuncture / Unknown 10/23/2023 8:35 AM CDT 10/23/2023 9:14 AM CDT Shruti Sy NP CHEMISTRY [facility] [address] [address], [place] * CT CHEST PE STUDY (05/16/2021 12:52 PM RESTAURANT SERVICE MANAGER) Anatomical Region Laterality Modality CHEST, THORAX, HEART Other 05/16/2021 12:5 2 PM RESTAURANT SERVICE MANAGER Impressions 05/16/2021 1:10 PM RESTAURANT SERVICE MANAGER IMPRESSION: 1. ??Negative for pulmonary embolism. 2. ??Emphysema. Narrative 05/16/2021 1:10 PM RESTAURANT SERVICE MANAGER EXAM: CT CHEST PULMONARY EMBOLISM w CONTRAST LOCATION: [facility] DATE/TIME: 05/16/2021 12:52 PM INDICATION: Prothrombin gene [...] CT CHEST PULMONARY EMBOLISM w CONTRAST LOCATION: [facility] DATE/TIME: 05/16/2021 12:52 PM INDICATION: Prothrombin gene [...] 1. Negative for pulmonary embolism. 2. Emphysema. Ximenaverona Herrera V, DO CT * ANTI HCV (07/05/2020 9:41 AM RESTAURANT SERVICE MANAGER) HEPATITIS C ANTIBODY Non-React lucas Non-React lucas 07/05/2020 3:17 PM RESTAURANT SERVICE MANAGER [facility] Comment:Antibodies to HCV no t detected; does not exclude the possibility of exposure to HCV. Blood BLOOD SPECIMEN / Unknown Venipuncture / Unknown 07/05/2020 9:41 AM RESTAURANT SERVICE MANAGER 07/05/2020 10:11 AM RESTAURANT SERVICE MANAGER Pam FARRARBS [facility] [address] [place] [address], [place] * ANTI HIV 1/2 (07/05/2020 9:41 AM RESTAURANT SERVICE MANAGER) Pathologist [facility] HIV-1/HIV-2 ANTIBODY Non-Reacti ve Non-Reacti ve 07/05/2020 3:26 PM RESTAURANT SERVICE MANAGER [facility] Comment:HIV-1 p24 and HIV-1/ HIV-2 Ab not detected. Blood BLOOD SPECIMEN / Unknown Venipuncture / Unknown 07/05/2020 9:41 AM RESTAURANT SERVICE MANAGER 07/05/2020 10:11 AM RESTAURANT SERVICE MANAGER Pam Hernandez MBBS [facility] [address] [place] [address], [place] * COLONOSCOPY (02/26/2015 2:21 PM CDT) 02/26/2015 2:21 PM CDT Narrative 02/26/2015 2:21 PM CDT [facility] Patient Name: Paige Maynard ?Procedure Date: [...] Elaine MD - 02/26/2015 3:01 PM CDT [facility] Patient Name: Paige Maynard Procedure [...] 5:21 PM CDT XR MAMMO SCREENING BILATERAL [71436.0] CLINICAL HISTORY: ??This is an asymptomatic 49 y.o. patient. INDICATION FOR EXAM: Mammogram Screening. TECHNIQUE: CC & MLO views were obtained. ??This analog study was evaluated with the assistance of Computer-Aided Detection. ?? COMPARISON FILM: Yes 06/03/07 [facility] 02/21/04 [facility] FINDINGS: ??Mammographically, the breast tissue has scattered fibroglandular densities (approximately 25% - 50% glandular). ??There are no dominant masses, suspicious micro calcifications or areas of architectural distortion. Procedure Note Sarah Florence MD - 10/15/2010 XR MAMMO SCREENING BILATERAL [[id number]] CLINICAL HISTORY: This is an asymptomatic 49 y.o. patient. INDICATION FOR EXAM: Mammogram Screening. TECHNIQUE: CC & MLO views were obtained. This analog study was evaluatedwith the assistance of Computer-Aided Detection. COMPARISON FILM: Yes 06/03/07 [facility] 02/21/04 [facility] FINDINGS: Mammographically, the breast tissue [...] on File) Date Activated Date Inactivated Comments 10/22/2023 6:27 AM 10/23/2023 1:40 PM Question Answer Comments Code Status Discussion: Not Discussed * Full Code Date Activated Date Inactivated Comments 02/26/2015 8:07 AM 02/26/2015 6:28 PM * Full Code Date Activated Date Inactivated Comments 11/30/2012 2:33 AM 12/02/2012 5:28 PM * Full Code Date Activated Date Inactivated Comments 05/20/2011 12:29 AM 05/20/2011 4:58 PM Care Teams Sole Blacker Relationship Specialty Start Date End Date Amanda Vuong PA [address] [place] [address] PCP - General Physician Sales Representative Uniforms 09/01/22
== END 2024-02-02 09:31 | disposition home or self-care (01) ==
LOC: INJ CL 09:31
PROVIDERS: PCP Student in an Organized Health Care Education/Training Program; Visit Provider Family Medicine
DX: M54.16 Radiculopathy, lumbar region (principal); M51.36 Other intervertebral disc degeneration, lumbar region
CPT/HCPCS: 64483; J1100; Q9966

== ENCOUNTER 2024-03-25 13:00 | Outpatient (RCR) | payer MEDICAID, SELFPAY | END 2024-07-23 23:59 | disposition home or self-care (01) | PROVIDERS: PCP Student in an Organized Health Care Education/Training Program; Visit Provider Student in an Organized Health Care Education/Training Program | DX: M75.51 Bursitis of right shoulder (principal); M75.41 Impingement syndrome of right shoulder; M25.511 Pain in right shoulder; Z74.09 Other reduced mobility; R53.1 Weakness; R29.3 Abnormal posture; Z51.89 Encounter for other specified aftercare | CPT/HCPCS: 97110; 97140; 97162 ==

== ENCOUNTER 2024-03-28 11:13 | Emergency (ER) | payer MEDICAID, SELFPAY ==
[2024-03-28 11:21] VITALS: BP 134/89; PULSE 64; RESP 18; TEMP 36.5; O2SAT 95; BMI 28.3
--- NOTE | 2024-03-28 12:59 | ED_ITS ---
HPI - Extremity Injury (Upper) General Time Seen by Provider: 12:59 Date Seen: 03/28/24 Chief Complaint: Extremity Pain/Injury, Upper Stated Complaint: shoulder pain Time Seen by Provider: 03/28/24 12:59 Source: patient, family and RN notes reviewed Mode of arrival: ambulatory Limitations: no limitations History of Present Illness HPI narrative: Paige is a very pleasant 63-year-old female previously healthy who comes to the emergency room for evaluation of right shoulder pain as her primary provider is on vacation this week. Paige notes the onset of some discomfort while unhooking her bra probably in December. It became more and more difficult to move her shoulder and she saw Dr. Barbour of the [facility] on February 16. At that time she underwent x-ray and an MRI and fortunately this did show impingement and rotator cuff tear. Paige noted on 03/10 she was attempting to get out of bed and slipped and had a event where she tried to push off the bed with her sore arm. She jammed her shoulder and the pain has been much worse since then. She was seen on 03/17 at which time she had a cortisone shot but it did not help and an MRI was reviewed. The plan was that she would see surgery if the cortisone did not help. Unfortunately patient has been experiencing more and more pain. She was given oxycodone but it has not helped. Today she notes that she has flexion of her right 4th finger. She is able to straighten her finger but this is something new today. She also notes tightness in her biceps. Her maximal pain is around the humeral head. Patient is not experience any chest pain or fever. At home she has been on naproxen twice a day Tylenol every 4 hours as well as tinazidine. Unfortunately along with oxycodone this has not helped her pain. Paige noted that the triage nurse sent her here to the emergency room because her primary is not available for the next week and thought that we could see her today. They are sending her MRI over for our viewing. Related Data Home Medications ?Medication ?Instructions ?Recorded ?Confirmed bupropion HCl 100 mg tablet 100 mg PO DAILY 08/25/22 08/25/22 fluoxetine 40 mg capsule (Prozac) 40 mg PO DAILY 08/25/22 08/25/22 lamotrigine 100 mg tablet 300 mg PO DAILY 08/25/22 08/25/22 (Lamictal) Previous Rx's ?Medication ?Instructions ?Recorded gabapentin 300 mg capsule 300 mg PO TID #45 caps 08/25/22 nirmatrelvir 300 mg (150 mg See Rx Instructions PO .COMPLEX 02/05/23 x2)-ritonavir 100 mg tablet,dose #30 ea pack (Paxlovid) hydrocodone 5 mg-acetaminophen 325 1 - 2 tab PO Q4-6H PRN pain #10 03/28/24 mg tablet tabs prednisone 20 mg tablet 20 mg PO BID #8 tabs 03/28/24 Allergies Allergy/AdvReac Type Severity Reaction Status Date / Time penicillin G Allergy Verified 03/28/24 11:21 Review of Systems Status of ROS: Reports: 6 or more systems reviewed and unremarkable except as noted in History and below Const: Denies: fever Cardio: Denies: chest pain, swelling of feet/ankles, lightheadedness or shortness of breath with exertion Resp: Denies: shortness of breath or cough GI: Denies: nausea or vomiting PFSH PFSH Social History Smoking Status: Former smoker Do you use any of these nicotine containing products: None How often do you have a drink containing alcohol: 2-4 times a month AUDIT-C Alcohol total score: 2 Non-prescribed substance use: denies use Exam Narrative: Exam Narrative: Paige is a very pleasant 63-year-old female who is quite tearful and in discomfort. Her EOM is full in her head is atraumatic normocephalic. Her shoulder is with normal anatomy but she has tenderness throughout. There is no erythema or ecchymosis. She is holding her arm in flexion. She does have flexion of her right 4th finger but she is able to straighten it out. However at rest it does flex again. There is normal strength and motor in the hand. Of note I do hold if all fingers in extension and with distraction there is no flexion of the 4th finger at this time. When this is persistent and not tr ansient. The shoulder joint is not warm to the touch. Heart with regular rate and rhythm and lungs are clear bilaterally. Any movement of the shoulder passive or active greatly increases patient's pain Const: Vital Signs, click to edit/add: Vital Signs - 24 hr 11/11/24 11:21 Temperature 97.7 F Pulse Rate [Pulse Oximeter] 64 Respiratory Rate 18 Blood Pressure [Ri ght Upper Arm] 134/89 Pulse Oximetry 95 Oxygen Delivery Me thod Room Air Documenting provider has reviewed patient's vital signs: yes Course Course ED Course: At this time differential diagnosis includes but is not limited to septic joint, adhesive capsulitis, rotator cuff tendinitis, gout. There is no evidence of infection and the wound is not warm. Patient has significant pain and therefore I have suggested that we place an IV, give dexamethasone 10 mg, Toradol 15 mg, morphine 4 mg and Zofran 4 mg. When she is feeling better will also obtain x- rays of the right shoulder. Reevaluation(s) Reevaluation #1: Patient appears to be improved after pain medications. O2 sats did drop to 88- 89 and 90% after morphine. However with deep breathing O2 sats return to the mid 90s. Vital Signs Vital signs: Initial Vital Signs Temperature 97.7 F 03/28/24 11:21 Temperature Source Temporal Artery Scan 03/28/24 11:21 Pulse Rate 64 03/28/24 11:21 Pulse Rhythm Regular 03/28/24 11:21 Respiratory Rate 18 03/28/24 11:21 Blood Pressure 134/89 03/28/24 11:21 Blood Pressure Mean 104 03/28/24 11:21 Blood Pressure Position Sitting 03/28/24 11:21 Pulse Oximetry 95 03/28/24 11:21 Oxygen Delivery Method Room Air 03/28/24 11:21 Vital Signs Temperature 97.7 F 03/28/24 11:21 Pulse Rate 64 03/28/24 11:21 Respiratory Rate 18 03/28/24 11:21 Blood Pressure 134/89 03/28/24 11:21 Pulse Oximetry 95 03/28/24 11:21 Oxygen Delivery Method Room Air 03/28/24 11:21 Temperature 97.7 F 03/28/24 11:21 Pulse Rate 64 03/28/24 11:21 Respiratory Rate 18 03/28/24 11:21 Blood Pressure 134/89 03/28/24 11:21 Pulse Oximetry 95 03/28/24 11:21 Oxygen Delivery Method Room Air 03/28/24 11:21 Medications Administered Medications: Discontinued Medications Generic Name Dose Route Start Last Admin Trade Name Freq PRN Reason Stop Dose Admin Dexamethasone 10 mg 03/28/24 13:15 03/28/24 13:27 Dexamethasone 10 Mg/Ml Inj IVP 03/28/24 13:16 10 mg ONCE ONE Administration Ketorolac Tromethamine 15 mg 03/28/24 13:15 03/28/24 13:27 Ketorolac 15 Mg/Ml Inj IVP 03/28/24 13:16 15 mg ONCE ONE Administration Morphine Sulfate 4 mg 03/28/24 13:15 03/28/24 13:27 Morphine 4 Mg/Ml Inj IVP 03/28/24 13:16 4 mg ONCE ONE Administration Ondansetron HCl 4 mg 03/28/24 13:15 03/28/24 13:27 Ondansetron 2 Mg/Ml Inj IVP 03/28/24 13:16 4 mg ONCE ONE Administration MDM - Extremity Injury (Upper) MDM Narrative Medical decision making narrative: 1. Right shoulder pain-suspected he said of capsulitis given the amount of pain and limited motion. At this time will place patient in shoulder immobilizer but strongly encouraged [id number] exercises a few times daily. Follow-up with orthopedics for evaluation. For discomfort patient did receive dexamethasone 10 mg as an anti-inflammatory. Would have her continue prednisone 20 mg b.i.d. for an additional 4 days 1st dose tomorrow evening. Patient does not think the oxycodone works for her but would like to try hydrocodone. This is acceptable but she will need to avoid clonazepam and the muscle relaxer which she has been prescribed as this could place her at health risk. She does agree to this. Hydrocodone 09/17 25 1-2 tablets p.o. Q 4-6 hours p.r.n. 10. Tablets with no refills. We spoke about the use of ibuprofen but with steroids already on board she should not need to use ibuprofen as anti-inflammatory. 2. Disposition-home at this time. Follow-up with Dr. Barbour or Orthopedics. The number has been provided for her. Of course return to the emergency room for worsening symptoms and as needed. Addendum: X-ray did not show any acute findings. No indication for repeat MRI in the emergency room. Medical Records Attestation: I reviewed the patient's medical records. Imaging Data Right shoulder x-ray: Attestation: I have reviewed the pertinent imaging results. My impression: I do not note any acute findings Radiologist's impression: No evident acute displaced fracture. Tiny subacromial enthesophyte. Mild degenerative change of the acromioclavicular joint. Minimal degenerative change of the glenohumeral joint. The subacromial space is grossly preserved. IMPRESSION: 1. No evident acute displaced fracture. 2. Mild degenerative change of the acromioclavicular joint. Minimal degenerative change of the glenohumeral joint. 3. Tiny subacromial enthesophyte. Discharge Plan Discharge Clinical Impression: Acute pain of right shoulder Additional Instructions: 1. You received dexamethasone which is a steroid through the IV today. This is an anti-inflammatory medication. We will have you continue steroids for 4 more days starting tomorrow evening. This was sent to your pharmacy. 2. Will have you hold off on your oxycodone at this time. Instead will try Vicodin which is a combination of a narcotic called hydrocodone and Tylenol. Please do not take any additional Tylenol as Tylenol as already contained in this medication. Please do not take Vicodin with oxycodone. They are both narcotics. Do not drive or use alcohol if using these medications. 3. Shoulder mobilizer this can be used for immobilizing shoulder for pain control. However, at least 3 to 4 times a day I do want you to take her shoulder out, bend at the waist and let your arm hang freely in front of you. Then make small circles to try to regain some mobility. Follow-up with orthopedics as soon as possible. The phone number is [phone]. 4. We spoke about avoiding the use of clonazepam or any other medication such as the muscle relaxer which could cause sedation. In combination with the narcotic this could create respiratory depression and serious health risks. Prescriptions: New prednisone 20 mg tablet 20 mg PO BID Qty: 8 0RF hydrocodone-acetaminophen 5-325 mg tablet 1 - 2 tab PO Q4-6H PRN (Reason: pain) Qty: 10 0RF No Action Paxlovid 300 mg (150 mg x 2)-100 mg tablets,dose pack See Rx Instructions .ROUTE .COMPLEX Qty: 30 0RF Rx Instructions: take TWO 150 mg tablets of nirmatrelvir with ONE 100 mg tablet of ritonavir twice daily for 5 days fluoxetine [Prozac] 40 mg capsule 40 mg PO DAILY lamotrigine [Lamictal] 100 mg tablet 300 mg PO DAILY bupropion HCl 100 mg tablet 100 mg PO DAILY gabapentin 300 mg capsule 300 mg PO TID Qty: 45 0RF Follow Up/Referrals: Amanda Vuong PA-C [Primary Care Provider] - Stand Alone Forms: [employer] Info Instructions
[2024-03-28] MEDS: MORPHINE 4 MG/ML INJ IVP (13:27)
[2024-03-28] MEDS: dexAMETHasone 10 MG/ML inj IVP (13:27)
[2024-03-28] MEDS: ONDANSETRON 2 MG/ML inj 4 MG IVP (13:27)
[2024-03-28] MEDS: KETOROLAC 15 MG/ML inj IVP (13:27)
--- OUTSIDE RECORDS SUMMARY | 2024-03-28 13:28 | XMS_ITS | Clinical Summary ---
Author Organization [facility] Address [place], [place] [address] Care Team Providers Care Clerical Clerk Name Role Phone Amanda Vuong Primary Care Provider [phone] Allergies Active Allergy Reactions Criticality Noted Date Comments Penicillins *Unknown - Childhood Rxn 08/10/2005 Medications Medication Sig Dispensed Refills Start Date End Date Status buPROPion (WELLBUTRIN XL) 300 mg Extended-Release tabletIndications: Bipolar I disorder (HC) Take 1 Tablet (300 mg) by mouth once daily. 90 Tablet 1 01/22/2024 Active clonazePAM (KLONOPIN) 0.5 mg tabletIndications: Bipolar I disorder (HC) Take 1-2 Tablets (0.5-1 mg) by mouth at bedtime. #45 tablets to last 30 days. 45 Tablet 2 01/22/2024 Active lamoTRIgine 100 mg tabletIndications: Bipolar I disorder (HC) Take 3 Tablets (300 mg) by mouth once daily. 90 Tablet 2 02/12/2024 Active divalproex (Depakote ER) 250 mg Extended-Release tabletIndications: Bipolar I disorder (HC) Take 2 Tablets (500 mg) by mouth once daily. 60 Tablet 2 02/12/2024 Active oxyCODONE (ROXICODONE) 5 mg immediate release tabletIndications: Shoulder impingement syndrome, right,Bursitis of right shoulder Take 1 Tablet (5 mg) by mouth 3 times daily if needed for Pain. 36 Tablet 03/17/2024 Active tiZANidine (ZANAFLEX) 4 mg tabletIndications: Lumbar radiculopathy TAKE ONE TABLET BY MOUTH EVERY EIGHT HOURS NEEDED FOR MUSCLE SPASM 60 Tablet 1 03/22/2024 Active tiZANidine (ZANAFLEX) 4 mg tabletIndications: Lumbar radiculopathy TAKE ONE TABLET BY MOUTH EVERY EIGHT HOURS NEEDED FOR MUSCLE SPASM 24 Tablet 2 11/16/2023 4 Discontinued traMADoL (ULTRAM) 50 mg tabletIndications: Bursitis of right shoulder,Shoulder impingement syndrome, right Take 1 Tablet (50 mg) by mouth at bedtime. 14 Tablet 02/24/2024 4 Discontinued(*Me d complete/Regimen complete/Level of care change) oxyCODONE (ROXICODONE) 5 mg immediate release tabletIndications: Shoulder impingement syndrome, right,Bursitis of right shoulder Take 1 Tablet (5 mg) by mouth at bedtime if needed for Pain. 10 Tablet 02/29/2024 4 Discontinued(Reo rder (E-cancel not sent)) oxyCODONE (ROXICODONE) 5 mg immediate release tabletIndications: Shoulder impingement syndrome, right,Bursitis of right shoulder Take 1 Tablet (5 mg) by mouth at bedtime if needed for Pain. 12 Tablet 03/10/2024 4 Discontinued(Reo rder (E-cancel not sent)) Hospital, Clinic, or Other Facility Administered Medication Ordered Dose Route Frequency Start Date End Date Status betamethasone acet,sod phos 9 mg injection (CELESTONE SOLUSPAN)Indications:Shoul le impingement syndrome, right,Bursitis of right shoulder 9 mg IArtic ONE TIME 03/17/2024 03/17/2024 Ended Active Problems Problem Noted Date Diagnosed Date Borderline personality disorder 07/14/2023 Bipolar 2 disorder 06/15/2023 Bipolar I disorder 06/15/2023 PTSD (post-traumatic stress disorder) 06/15/2023 Ear pain, left 05/30/2021 Gastroesophageal reflux disease 05/16/2021 Diastolic blood pressure 90 mm Hg or higher 04/19 Centrilobular emphysema 05/16/2021 Overview (05/16/2021): 05/16/2021 Prothrombin gene mutation 11/05/2020 Overview (04/25/2021): Heterozygous; diagnosed 12/05/2019; had seen [facility] Elective surgery and hospitalization needs DVT [...] Encounters Date Type Department Care Team Description 03/21/2024 Refill [facility] [address] [place] [address] Dwayne Barbour MD Refill Request (Tizanidine) 03/18/2024 Nurse Triage [facility] [address] [place] [address] Jessika Ellis, JUNO Headache; Concerns (Facial redness ) 03/18/2024 Telephone [facility] [address] [facility] [place] [address] Dwayne Barbour MD APPOINTMENT (2 week follow up ) 03/17/2024 2:40 PM CDT Office Visit [facility] [address] [facility] [place] [address] Dwayne Barbour MD Musculoskeletal Problem (Follow up right shoulder pain, fell on 03/10/24.) 03/17/2024 Travel 03/11/2024 Travel 03/09/2024 10:40 AM CDT Office Visit [facility] [address] [place] [address] Dwayne Barbour MD Musculoskeletal Problem (Consult right shoulder) 03/09/2024 Travel 03/04/2024 Travel 02/22/2024 8:45 AM CDT Ancillary Procedure [facility] [address] [place] [address] 02/22/2024 Travel 02/20/2024 Travel 02/17/2024 8:30 AM CDT Ancillary Procedure [facility] [address] [place] [address] 02/17/2024 7:50 AM CDT Office Visit [facility] [address] [place] [address] Amanda Vuong PA Shoulder Pain/problem (Right shoulder- about 8 weeks, having difficulties with dressing, and moving. ) 02/17/2024 Travel 02/12/2024 8:15 AM CDT Telemedicine [facility] [address] [place] [address] Ирина Roy MD Telehealth (patient is in [place]); Follow Up 02/12/2024 Travel 02/11/2024 Travel 02/08/2024 Travel 02/02/2024 10:00 AM CDT Office Visit [facility] at [address] [address] Dwayne Barbour MD Procedure (Left L4-5 TFESI) 01/30/2024 Travel 01/22/2024 8:15 AM CDT Telemedicine [facility] [address] [place] [address] Ирина Roy MD Telehealth; Medication Management (Things are going okay) 01/21/2024 Travel 01/07/2024 3:15 PM CDT Orders Only [facility] [address] [facility] [place] [address] [facility], [place] Outside Order ([place]) 01/07/2024 2:20 PM CDT Office Visit [facility] [address] [facility] [place] [address] Dwayne Barbour MD Musculoskeletal Problem (Follow up back pain) 01/07/2024 Travel 01/04/2024 9:45 AM CDT Office Visit [facility] [address] [facility] [place] [address] Ирина Roy MD Follow Up; Medication Management (feeling, I'm feeling OK today) 01/03/2024 Travel 12/29/2023 Orders Only [facility] [address] [place] [address] Amanda Vuong PA Outside Order (Ordered by Marian Parra) from Last 3 Months Immunizations Name Administration Dates Next Due COVID-19 VACCINE SPIKEVAX (M ODERNA 50MCG/0.5ML) 12YO+ PFS 03/03/2023 COVID-19 vaccine (Pfizer-BioNTech 30mcg/0.3mL) P F, MDV 12/07/2020,11/09/2020 Influenza, IIV3 [...] PHQ-2 Answer Date Recorded PHQ-2 TOTAL SCORE 3 02/11/2024 Social Connections Answer Date Recorded Do you often feel lonely or isolated from those around you? 4 10/22/2023 Financial Resource Strain Answer Date R ecorded Difficulty of Paying Living Expenses 3 01/06/2023 Difficulty of Paying Living Expenses Not on file 01/06/2023 Food Insecurity Answer Date Recorded Do you worry your food will run out before you are able to buy more? 1 10/22/2023 Transportation Needs Answer Date Record ed Does lack of transportation keep you from medica l appointments? 1 10/22/2023 Does lack of transportation keep you from work, meetings or getting things that you need? 1 10/22/2023 Housing Stability Answer Date Recorded What is your housing situation today? 1 10/22/2023 Sex and Gender Information Value Date Recorded [...] Sign Reading Time Taken Comments Blood Pressure 155/103 03/17/2024 2:42 PM CDT Pulse 76 03/17/2024 2:42 PM CDT Temperature 37.1 ??C (98.8 ??F) 03/17/2024 2:42 PM CD T Respiratory Rate 16 10/23/2023 9:00 AM CDT Oxygen Saturation 97% 03/17/2024 2:42 PM CDT Inhaled Oxygen Concentration - - Weight 87.5 kg (193 lb) 02/17/2024 7:48 AM CDT Height 160 cm (5' 3) 07/14/2023 11:15 AM CONSUMER SAFETY INSPECTOR Body Mass Index 34.19 07/14/2023 11:15 AM CONSUMER SAFETY INSPECTOR Plan of Treatment Upcoming Encounters Date Type Department Care Team (Late st Contact Info) Description 04/20/2024 8:15 AM CONSUMER SAFETY INSPECTOR Office Visit [address] [place] [address] Иирна Roy MD [address] [place] [address] 05/25/2024 9:40 AM CONSUMER SAFETY INSPECTOR Office Visit [facility] [address] [place] [address] Dwayne Barbour MD [address] [place] [address] Health Maintenance Due Date Last Done Comments [...] 09/16/2022 09/16/2021, 05/16/2021, 01/20/2018, Additional history exists COVID-19 vaccine series (2023- season) 2024 03/03/2023, 07/19/2021, 12/07/2020, Additional history exists Influenza for age 50-64 01/17/2024 03/03/20 23, 05/30/2021, 03/21/2012, Additional history exists Depression screening for age 12+ 02/11/2025 02/12/2024, 02/11/2024, 01/22/2024, Additional history exists Colonoscopy through age 75 02/26/2025 02/26/2015 Tetanus booster 12/09/2027 12/08/2017 Lipids for age 45-75 10/22/2028 10/23/2023, 05/13/2023, 02/14/2016, Additional history exists Tdap Completed 12/08/2017 HIV for age 15-65 Completed 07/05/2020 Hepatitis C screening for ag e 18-79 Completed 07/05/2020, 12/08/2017 Procedures Procedure Name Priority Date/Time Associated Diagnosis Comments MR SHOULDER RIGHT WO Routine 02/22/2024 9:35 AM CDT Acute pain of right shoulder XR SHOULDER 3 VIEWS RIGHT Routine 02/17/2024 8:42 AM CDT Acute pain of right shoulder ANTINUCLEAR ANTIBODY BY IFA Routine 02/17/2024 8:24 AM CDT Acute pain of right shoulder SEDIMENTATION RATE Routine 02/17/2024 8: 24 AM CDT Acute pain of right shoulder C-REACTIVE PROTEIN Routine 02/17/2024 8: 24 AM CDT Acute pain of right shoulder CYCLIC CITRULLINE PEPTIDE Routine 02/17/2024 8:24 AM CDT Acute pain of right shoulder RA QUANTITATIVE Routine 02/17/2024 8:24 AM CDT Acute pain of right shoulder AMB EPIDURAL STEROID INJECTION Routine 02/02/2024 12:00 AM CDT Lumbar radiculopathy DDD (degenerative disc disease), cervical Lumbosacral radiculopathy at L4 VITAMIN D 25 (DEFICIENCY) Routine 01/07/2024 3:29 PM CDT Avitaminosis D LIPID PANEL Early AM 10/23/2023 8:[address] CHEST PE STUDY PAT 05/16/2021 12: 52 PM CONSUMER SAFETY INSPECTOR Prothrombin gene mutation (HC) RICHARDSON (dyspnea on exertion) ANTI HIV 1/2 Routine 07/05/2020 9:41 AM CONSUMER SAFETY INSPECTOR Rheumatoid arthritis, involving unspecified site, unspecified whether rheumatoid factor present (HC) ANTI HCV Routine 07/05/2020 9:41 AM CONSUMER SAFETY INSPECTOR Rheumatoid arthritis, involving unspecified site, unspecified whether rheumatoid factor present (HC) COLONOSCOPY 02/26/2015 2:21 PM CDT XR MAMMO SCREENING BILATERAL (IA) Routine 10/10/2010 9:44 AM CDT Other screening mammogram from Last 3 Months or Most Recently Relevant to Health Maintenance Results * MR SHOULDER RIGHT WO (02/22/2024 9:35 AM CDT) Anatomical Region Laterality Modality SHOULDER R Magnetic Resonan ce 02/22/2024 4:26 PM CDT Impressions 02/22/2024 4:26 PM CDT 1. Monitor advanced supraspinatus tendinopathy. 2. Hhyz-yh-femuvfhn infraspinatus tendinopathy. 3. Mild subacromial subdeltoid bursitis. 4. Mild arthropathy in the acromioclavicular joint. Dictated by Dwayne Martinez MD @ 02/22/2024 4:26:47 PM (Electronically Signed) Narrative 02/22/2024 4:26 PM CDT For Patients: ??As a result of the Cures Act, medical imaging exams and procedure reports are released immediately into your electronic medical record. ??You may view this report before your referring provider. ??If you have questions, please contact your health care provider. EXAM: MRI OF THE RIGHT SHOULDER WITHOUT CONTRAST CLINICAL INDICATION: Acute right shoulder pain. COMPARISON PLAIN FILMS: 02/17/2024. COMPARISON CROSS-SECTIONAL IMAGING STUDIES: None available at time of interpretation. TECHNICAL: Axial, sagittal oblique and coronal oblique T1, PD, PD FS and T2-weighted images. Shoulder surface coil. FINDINGS: ROTATOR CUFF TENDONS AND MUSCLES AND DELTOID: Supraspinatus: Diffuse increased signal and heterogeneity within the supraspinatus tendon consistent with moderate to advanced tendinopathy. No tendon tear. No muscle atrophy or edema. Infraspinatus: Mild to moderate increased signal in the infraspinatus tendon consistent with tendinopathy. No tendon tear. No muscle atrophy or edema. Subscapularis: No tendinosis, tendon tearing, muscle atrophy or muscle edema. Teres Minor: No tendinosis, tendon tearing, muscle atrophy or muscle edema. Deltoid: No muscle atrophy or edema. BURSA: Subacromial-subdeltoid: Mild edema in the subacromial subdeltoid bursa consistent with bursitis. BICEPS TENDON, LONG HEAD: The long head of the biceps tendon is appropriately positioned within the bicipital groove without tendon subluxation or dislocation. ??The biceps max mechanism is intact. ??The biceps anchor appears grossly intact. ??There is no significant tendinosis or tendon tearing. CORACOACROMIAL ARCH: Acromial Morphology: Type 1 acromial morphology. No abnormal lateral or anterior downward sloping of the acromion. No significant subacromial spur. ??No os acromiale. Acromiohumeral Interval: Normal. ?? Coracohumeral Interval: Normal. ?? ACROMIOCLAVICULAR JOINT REGION: AC Joint: Mild arthropathy. Ligaments: The coracoclavicular ligaments are intact. GLENOHUMERAL JOINT: Joint space: No effusion or synovitis. Humeral Head Articular Cartilage: No focal cartilage defect or underlying subchondral marrow changes. Glenoid Articular Cartilage: No focal cartilage defect or underlying subchondral marrow changes. Labrum: No labral tear or paralabral cyst. Alignment: Maintained. Capsule: No capsular edema or abnormal capsular thickening. OSSEOUS STRUCTURES: Small amount of cystic change and edema at the greater tuberosity. OTHER FINDINGS: There is no abnormality within the suprascapular or spinoglenoid notches nor within the quadrilateral space. ??No axillary adenopathy or mass. Procedure Note Dwayne Martinez MD - 02/22/2024 For Patients: As a result of the 21st Century Cures Act, medical imagingexams and procedure reports are released immediately into your electronicmedical record. You may view this report before your referring provider.If you have questions, please contact your health care provider. EXAM: MRI OF THE RIGHT SHOULDER WITHOUT CONTRAST CLINICAL INDICATION: Acute right shoulder pain. COMPARISON PLAIN FILMS: 02/17/2024. COMPARISON CROSS-SECTIONAL IMAGING STUDIES: None available at time of interpretation. TECHNICAL: Axial, sagittal oblique and coronal oblique T1, PD, PD FS and T2-weightedimages. Shoulder surface coil. FINDINGS: ROTATOR CUFF TENDONS AND MUSCLES AND DELTOID: Supraspinatus: Diffuse increased signal and heterogeneity within thesupraspinatus tendon consistent with moderate to advanced tendinopathy. [place]on tear. No muscle atrophy or edema. Infraspinatus: Mild to moderate increased signal in the infraspinatustendon consistent with tendinopathy. No tendon tear. No muscle atrophy oredema. Subscapularis: No tendinosis, tendon tearing, muscle atrophy or muscleedema. Teres Minor: No tendinosis, tendon tearing, muscle atrophy or muscleedema. Deltoid: No muscle atrophy or edema. BURSA: Subacromial-subdeltoid: Mild edema in the subacromial subdeltoid bursaconsistent with bursitis. BICEPS TENDON, LONG HEAD: The long head of the biceps tendon is appropriately positioned within thebicipital groove without tendon subluxation or dislocation. The bicepspulley mechanism is intact. The biceps anchor appears grossly intact.There is no significant tendinosis or tendon tearing. CORACOACROMIAL ARCH: Acromial Morphology: Type 1 acromial morphology. No abnormal lateral oranterior downward sloping of the acromion. No significant subacromialspur. No os acromiale. Acromiohumeral Interval: Normal. Coracohumeral Interval: Normal. ACROMIOCLAVICULAR JOINT REGION: AC Joint: Mild arthropathy. Ligaments: The coracoclavicular ligaments are intact. GLENOHUMERAL JOINT: Joint space: No effusion or synovitis. Humeral Head Articular Cartilage: No focal cartilage defect or underlyingsubchondral marrow changes. Glenoid Articular Cartilage: No focal cartilage defect or underlyingsubchondral marrow changes. Labrum: No labral tear or paralabral cyst. Alignment: Maintained. Capsule: No capsular edema or abnormal capsular thickening. OSSEOUS STRUCTURES: Small amount of cystic change and edema at the greater tuberosity. OTHER FINDINGS: There is no abnormality within the suprascapular or spinoglenoid notchesnor within the quadrilateral space. No axillary adenopathy or mass. IMPRESSION: 1. Monitor advanced supraspinatus tendinopathy. 2. Mfqg-op-jbgjgglw infraspinatus tendinopathy. 3. Mild subacromial subdeltoid bursitis. 4. Mild arthropathy in the acromioclavicular joint. Dictated by Dwayne Martinez MD @ 02/22/2024 4:26:47 PM (Electronically Signed) Amanda LEBLANC MR * XR SHOULDER 3 VIEWS RIGHT (02/17/2024 8:42 AM CDT) Anatomical Region Laterality Modality SHOULDERS, SHOULDER R Computed R adiography 02/17/2024 8:54 AM CDT Narrative 02/17/2024 8:54 AM CDT For Patients: ??As a result of the Cures Act, medical imaging exams and procedure reports are released immediately into your electronic medical record. ??You may view this report before your referring provider. ??If you have questions, please contact your health care provider. Indication: Right shoulder pain. Technique: Right shoulder 3 views. Comparison: 01/15/2010 Findings: Mild narrowing and spurring at the acromioclavicular and glenohumeral joints. Subacromial spur. No fracture. Impression: Mild degenerative joint disease right shoulder. Dictated by Diego Westbrook MD @ 02/17/2024 8:54:19 AM (Electronically Signed) Procedure Note Diego Westbrook MD - 02/17/2024 For Patients: As a result of the Cures Act, medical imagingexams and procedure reports are released immediately into your electronicmedical record. You may view this report before your referring provider.If you have questions, please contact your health care provider. Indication: Right shoulder pain. Technique: Right shoulder 3 views. Comparison: 01/15/2010 Findings: Mild narrowing and spurring at the acromioclavicular and glenohumeraljoints. Subacromial spur. No fracture. Impression: Mild degenerative joint disease right shoulder. Dictated by Diego Westbrook MD @ 02/17/2024 8:54:19 AM (Electronically Signed) Amanda LEBLANC GENERAL IMAGING * SEDIMENTATION RATE (02/17/2024 8:24 AM CDT) SED RATE BY MODIFIED WESTERGREN 6 < OR = 30 mm/h [employer] [facility] Blood BLOOD SPECIMEN / Unknown 02/17/2024 8:24 AM CDT 02/17/2024 8:25 AM CDT Amanda LEBLANC HEMATOLOGY Performing Organization Address [facility] Co de Phone Number [facility] [address] [facility] [address], [place] [phone] [facility] [address] [place] [address] * ANTINUCLEAR ANTIBODY BY IFA (02/17/2024 8:24 AM CDT) BOUCHRA SCREEN, IFA NEGATIVE NEGATIVE [facility] Comment: BOUCHRA IFA is a first line screen for detecting the presence of up to approximately 150 autoantibodies in various autoimmune diseases. A negative BOUCHRA IFA result suggests an BOUCHRA-associated autoimmune disease is not present at this time, but is not definitive. If there is high clinical suspicion for Sjogren's syndrome, testing for anti-SS-A/Ro antibody should be considered. Anti-Naye-1 antibody should be considered for clinically suspected inflammatory myopathies. AC-0: Negative International Consensus on BOUCHRA Patterns (https://doi.org/10.1515/vesz-5645-5290) For additional information, please refer to http://education.cheerapp/faq/UGD657 (This link is being provided for informational/ educational purposes only.) ?? Blood BLOOD SPECIMEN / Unknown 02/17/2024 8:24 AM CDT 02/17/2024 8:25 AM CDT Amanda LEBLANC CHEMISTRY Performing Organization Address [facility]/ZIP Co de Phone Number [facility] [address] [place] [address], [place] [phone] [facility] [address] [place] [address] * CYCLIC CITRULLINE PEPTIDE (02/17/2024 8:24 AM CDT) CYCLIC CITRULLINATED PEPTIDE (CCP) AB (IGG) <16 UNITS [facility] [place] Comment: Reference Range Negative: ?<20 Weak Positive: ? 20-39 Moderate Positive: ?? 40-59 Strong Positive: ? >59 Blood BLOOD SPECIMEN / Unknown 02/17/2024 8:24 AM CDT 02/17/2024 8:25 AM CDT Amanda LEBLANC SEND OUTS Performing Organization Address [facility] Co de Phone Number [facility] [address] [place] [address], [place] [phone] [facility] [address] [place] [address] * RA QUANTITATIVE (02/17/2024 8:24 AM CDT) RHEUMATOID FACTOR <10 <14 IU/mL [facility] Blood BLOOD SPECIMEN / Unknown 02/17/2024 8:24 AM CDT 02/17/2024 8:25 AM CDT Amanda LEBLANC SEND OUTS Performing Organization Address [facility] de Phone Number [facility] [address] [place] [address], [place] [phone] [facility] [address] [place] [address] * C-REACTIVE PROTEIN (02/17/2024 8:24 AM CDT) C-REACTIVE PROTEIN 3.4 <8.0 mg/L [facility] Blood BLOOD SPECIMEN / Unknown 02/17/2024 8:24 AM CDT 02/17/2024 8:25 AM CDT Amanda LEBLANC CHEMISTRY Performing Organization Address [facility] de Phone Number [facility] [address] [place] [address], [place] [phone] [facility] [address] [place] [phone] * AMB EPIDURAL STEROID INJECTION (02/02/2024 12:00 AM CDT) Dwayne Barbour MD NEUROLOGY ORD * VITAMIN D 25 (DEFICIENCY) (01/07/2024 3:29 PM CDT) VITAMIN D TOTAL 66.5 20.0 - 80.0 ng/mL 01/08/2024 3:20 AM CDT [facility] Blood BLOOD SPECIMEN / Unknown Venipuncture / Unknown 01/07/2024 3:29 PM CDT 01/07/2024 3:34 PM CDT Narrative [facility] - 01/08/2024 3:20 AM CDT ? Vitamin D Status Deficiency: ? <20 ng/mL Insufficiency: ?20-29 ng/mL Sufficiency: ?30-80 ng/mL Possible Toxicity: ??>80 ng/mL Based on [place] [employer] recommendations Biotin supplements may cause clinically significant interference for this test assay. ??If interference is suspected, it is strongly recommended that biotin is discontinued for at least one week prior to retesting. Amanda LEBLANC SEND OUTS [facility] [address] [place] [address], * (ABNORMAL) Lipid Panel (10/23/2023 8:35 AM CDT) CHOLESTEROL,TOTAL 226(H) 100 - 199 mg/dL 10/23/2023 10:03 AM CDT [facility] Comment: Cholesterol, Total Reference Ranges Desirable <200 mg/dL Borderline 200-239 mg/dL High >=240 mg/dL TRIGLYCERIDES 224(H) <150 mg/dL 10/23/2023 10:03 AM CDT [facility] HDL CHOLESTEROL 49 >40 mg/dL 10:03 AM CDT [facility] NON-HDL CHOLESTEROL 177(H) <145 mg/dl 10/23/2023 10:03 AM CDT [facility] CHOL/HDL RATIO 4.61(H) <4.50 10/23/2023 10:03 AM CDT [facility] LDL CHOLESTEROL 132(H) <=130 mg/dL 10/23/2023 10:03 AM CDT [facility] VLDL CHOLESTEROL 45(H) <=30 mg/dL 10/23/2023 10:03 AM CDT [facility] PROVIDER ORDERED STATUS RANDOM 10/23/2023 10:03 AM CDT [facility] Blood BLOOD SPECIMEN / Unknown Non-Lab Venipuncture / Unknown 10/23/2023 8:35 AM CDT 10/23/2023 9:14 AM CDT Shruti Sy NP CHEMISTRY [facility] [address] [place] [phone], * CT CHEST PE STUDY (05/16/2021 12:52 PM CONSUMER SAFETY INSPECTOR) Anatomical Region Laterality Modality CHEST, THORAX, HEART Other 05/16/2021 12:5 2 PM CONSUMER SAFETY INSPECTOR Impressions 05/16/2021 1:10 PM CONSUMER SAFETY INSPECTOR IMPRESSION: 1. ??Negative for pulmonary embolism. 2. ??Emphysema. Narrative 05/16/2021 1:10 PM CONSUMER SAFETY INSPECTOR EXAM: CT CHEST PULMONARY EMBOLISM w CONTRAST LOCATION: [facility] DATE/TIME: 05/16/2021 12:52 PM INDICATION: [...] CT CHEST PULMONARY EMBOLISM w CONTRAST LOCATION: [facility] DATE/TIME: 05/16/2021 12:52 PM INDICATION: [...] Negative for pulmonary embolism. 2. Emphysema. Bryon Herrera V, DO CT * ANTI HCV (07/05/2020 9:41 AM CONSUMER SAFETY INSPECTOR) HEPATITIS C ANTIBODY Non-React lucas Non-React lucas 07/05/2020 3:17 PM CONSUMER SAFETY INSPECTOR [facility] Comment:Antibodies to HCV no t detected; does not exclude the possibility of exposure to HCV. Blood BLOOD SPECIMEN / Unknown Venipuncture / Unknown 07/05/2020 9:41 AM CONSUMER SAFETY INSPECTOR 07/05/2020 10:11 AM CONSUMER SAFETY INSPECTOR Pam Hernandez MBBS SEND OUTS [facility] [address] [place] [address], * ANTI HIV 1/2 (07/05/2020 9:41 AM CONSUMER SAFETY INSPECTOR) HIV-1/HIV-2 ANTIBODY Non-Reacti ve Non-Reacti ve 07/05/2020 3:26 PM CONSUMER SAFETY INSPECTOR [facility] Comment:HIV-1 p24 and HIV-1/ HIV-2 Ab not detected. Blood BLOOD SPECIMEN / Unknown Venipuncture / Unknown 07/05/2020 9:41 AM CONSUMER SAFETY INSPECTOR 07/05/2020 10:11 AM CONSUMER SAFETY INSPECTOR Pam Hernandez MBBS SEND OUTS [facility] [address] [place] [address], [place] * COLONOSCOPY (02/26/2015 2:21 PM CDT) 02/26/2015 2:21 PM CDT Narrative 02/26/2015 2:21 PM CDT [facility] Patient Name: Paige Maynard ?Procedure [...] Elaine MD - 02/26/2015 3:01 PM CDT [facility] Patient Name: Paige Maynard [...] 5:21 PM CDT XR MAMMO SCREENING BILATERAL [95132.0] CLINICAL HISTORY: ??This is an asymptomatic 49 y.o. patient. INDICATION FOR EXAM: Mammogram Screening. TECHNIQUE: CC & MLO views were obtained. ??This analog study was evaluated with the assistance of Computer-Aided Detection. ?? COMPARISON FILM: Yes 06/03/07 [facility] 02/21/04 [place] FINDINGS: ??Mammographically, the breast tissue has scattered fibroglandular densities (approximately 25% - 50% glandular). ??There are no dominant masses, suspicious micro calcifications or areas of architectural distortion. Procedure Note Sarah Florence MD - 10/15/2010 XR MAMMO SCREENING BILATERAL [98039.0] CLINICAL HISTORY: This is an asymptomatic 49 y.o. patient. INDICATION FOR EXAM: Mammogram Screening. TECHNIQUE: CC & MLO views were obtained. This analog study was evaluatedwith the assistance of Computer-Aided Detection. COMPARISON FILM: Yes 06/03/07 [facility] 02/21/04 [place] FINDINGS: Mammographically, the breast tissue has scatteredfibroglandular [...] 12:29 AM 05/20/2011 4:58 PM Care Teams Clerical Clerk Relationship Specialty Start Date End Date [place] [address] [address] PCP - General Physician [employer] Machine Operator 09/01/22
--- NOTE | 2024-03-28 14:17 | CRLHL7_ITS ---
For Patients: As a result of the Century Cures Act, medical imaging exams and procedure reports are released immediately into your electronic medical record. You may view this report before your referring provider. If you have questions, please contact your health care provider. INDICATION: Pain COMPARISON: 02/17/2024 right shoulder radiographs TECHNIQUE: Three radiographic view(s) of the right shoulder. FINDINGS: No evident acute displaced fracture. Tiny subacromial enthesophyte. Mild degenerative change of the acromioclavicular joint. Minimal degenerative change of the glenohumeral joint. The subacromial space is grossly preserved. IMPRESSION: 1. No evident acute displaced fracture. 2. Mild degenerative change of the acromioclavicular joint. Minimal degenerative change of the glenohumeral joint. 3. Tiny subacromial enthesophyte. Dictated by Vicente Smith MD @ 03/28/2024 2:58:54 PM (Electronically Signed)
== END 2024-03-28 15:42 | disposition home or self-care (01) ==
PROVIDERS: Emergency Provider Family Medicine; PCP Student in an Organized Health Care Education/Training Program; Visit Provider Family Medicine
DX: M25.511 Pain in right shoulder (principal)
CPT/HCPCS: 73030; 96374; 96375; 99283; 99284; J1100; J1885; J2270; J2405

== ENCOUNTER 2024-08-09 13:15 | Outpatient (RCR) | payer MEDICAID, SELFPAY | END 2024-12-07 23:59 | disposition home or self-care (01) | PROVIDERS: PCP Student in an Organized Health Care Education/Training Program; Visit Provider Family Medicine | DX: S46.911S Strain of unspecified muscle, fascia and tendon at shoulder and upper arm level, right arm, sequela (principal); M75.01 Adhesive capsulitis of right shoulder; Z51.89 Encounter for other specified aftercare | CPT/HCPCS: 97110; 97140; 97162 ==

== ENCOUNTER 2024-10-31 10:56 | Outpatient (RCR) | payer MEDICAID, SELFPAY | END 2025-02-28 23:59 | disposition home or self-care (01) | PROVIDERS: PCP Student in an Organized Health Care Education/Training Program; Visit Provider Orthopaedic Surgery Sports Medicine | DX: M19.012 Primary osteoarthritis, left shoulder (principal); M75.112 Incomplete rotator cuff tear or rupture of left shoulder, not specified as traumatic; M75.42 Impingement syndrome of left shoulder; Z51.89 Encounter for other specified aftercare | CPT/HCPCS: 97110; 97161 ==

== ENCOUNTER 2024-12-09 13:08 | Outpatient (CLI) | payer MEDICAID, SELFPAY | END 2024-12-09 13:09 | disposition home or self-care (01) | LOC: INJ CL 13:08 | PROVIDERS: PCP Student in an Organized Health Care Education/Training Program; Visit Provider Family Medicine | DX: M54.16 Radiculopathy, lumbar region (principal); M51.369 Other intervertebral disc degeneration, lumbar region without mention of lumbar back pain or lower extremity pain | CPT/HCPCS: 62323; J0702; Q9966 ==

== ENCOUNTER 2025-01-24 07:30 | Outpatient (CLI) | payer MEDICAID, SELFPAY | END 2025-01-24 07:31 | disposition home or self-care (01) | LOC: INJ CL 07:31 | PROVIDERS: PCP Student in an Organized Health Care Education/Training Program; Visit Provider Family Medicine | DX: M54.16 Radiculopathy, lumbar region (principal); M51.369 Other intervertebral disc degeneration, lumbar region without mention of lumbar back pain or lower extremity pain | CPT/HCPCS: 62323; J0702; Q9966 ==